=== PATIENT | female | born 1975 | race Caucasian/White ===

== ENCOUNTER 2023-05-17 14:37 | Outpatient (CLI) | payer OTHER, MEDICAID, SELFPAY ==
--- NOTE | ~2023-05-17 | MR_ITS ---
EXAMINATION: MR knee RT wo con DATE: 05/17/2023 15:42 INDICATION: Medial right knee pain post twisting injury TECHNIQUE: Magnetic resonance imaging (MRI) of the right knee was performed without intravenous contr ast. Sequences included coronal PD-weighted FSE, coronal PD-weighted FS FSE, sagittal T2-weighted FS E, sagittal PD-weighted FS FSE and axial PD weighted fat saturated FSE. COMPARISON: None. FINDINGS: Medial compartment: Medial meniscus is normal. Articular cartilage is normal. Lateral compartment: Lateral meniscus is normal. Articular cartilage is normal. Patellofemoral compartment: There is mild partial-thickness chondral fissuring at the caudal aspect of the lateral patellar facet . Partial-thickness chondral ulceration at the inferolateral aspect of the medial trochlea. Ligaments and tendons: Anterior and posterior cruciate ligaments are normal. The fibular collateral ligament complex is norm al. Mild thickening and increased signal of the proximal medial collateral ligament with minimal surr ounding edema consistent with low to moderate grade sprain. The extensor mechanism is normal. The vis ualized medial and lateral hamstring tendons as well as the iliotibial band are normal. Fluid: Small right knee joint effusion. There is a medial plical band which extends a few millimeters beyond the medial rim of the cephalad aspect of the medial trochlea. No loose osteochondral bodies identifi ed. Osseous/other: Normal marrow signal. No fracture or pathologic marrow replacing process. There is mild edema in the infrapatellar fat pad between the inferolateral margin of the patella and lateral trochlea. IMPRESSION: 1. Low to moderate grade strain of the proximal medial collateral ligament. 2. Mild patellofemoral osteoarthritis with small regions of moderate grade chondromalacia. 3. Mild edema in the infrapatellar fat pad which can be seen with fat pad impingement syndrome. Reviewed, dictated and finalized at location A. IMPRESSION: 1. Low to moderate grade strain of the proximal medial collateral ligament. 2. Mild patellofemoral osteoarthritis with small regions of moderate grade kush dromalacia. 3. Mild edema in the infrapatellar fat pad which can be seen with fat pad impin gement syndrome.
== END 2023-05-17 14:38 | disposition home or self-care (01) ==
PROVIDERS: PCP Nurse Practitioner Family; Visit Provider Physician Assistant Surgical
DX: M17.11 Unilateral primary osteoarthritis, right knee (principal); S83.411A Sprain of medial collateral ligament of right knee, initial encounter; X58.XXXA Exposure to other specified factors, initial encounter
CPT/HCPCS: 73721

== ENCOUNTER 2025-04-28 13:47 | Outpatient (CLI) | payer OTHER, SELFPAY ==
--- NOTE | ~2025-04-28 | CT_ITS ---
Non-contrast CT scan of the Abdomen Clinical indication: Disorder adrenal gland Technique: 2.5 mm axial scans were obtained through the abdomen without intravenous or oral contrast . Dose reduction technique was used on this scan by utilizing automated exposure control and iterativ e reconstruction technique. The dose-length product (DLP) was 983.82 mGy-cm. Findings: Images through the lung bases reveal no abnormalities. There is no evidence of renal or ureteral calculi. The kidneys and the ureters are nondilated. The liver, spleen, pancreas, gallbladder, and adrenals appear normal. There is no aortic aneurysm. Visualized bowel loops are unremarkable. No ascites. 4.1 cm partially cystic mass present in the righ t lower quadrant. Impression: Unremarkable adrenal glands. 4.1 cm partially imaged cystic mass in the right lower quadrant, possibly of ovarian/adnexal region. Consider dedicated imaging evaluation (CT or ultrasound). Reviewed, dictated and finalized at [facility]. Impression: Unremarkable adrenal glands. 4.1 cm partially imaged cystic mass in the right lower quadrant, possibly of ov barron/adnexal region. Consider dedicated imaging evaluation (CT or ultrasound).
--- OUTSIDE RECORDS SUMMARY | 2025-04-28 14:00 | XMS_ITS | Encounter Summary ---
Author Organization [facility] Address [address] [place] [address] Care Team Providers Care Clinical Care Coordinator Name Role Phone Sherri Bowesr MD Primary Care Provider [phone] Encounter Details Date Type Department Care Team (Late st Contact Info) Description 09/17/2024 [place]kot Message Enc [facility] Family Medicine - [address], [address] [place] [phone] Sherri Bowers MD [address] [facility] [address] [place], [place] [phone] Appointment Social History Tobacco Use Types Packs/Day Years Used Date Smoking Tobacco: Never Passive Smoke Exposure: Never Smokeless Tobacco: Never Alcohol Use Standard Drinks/Week Comments Yes 0 (1 standard drink = 0.6 oz pur e alcohol) PHQ-2 Answer Date Recorded Patient Health Questionnaire-2 Score 0 11/25/2023 Comments No Sex and Gender Information Value Date Recorded Sex Assigned at Female 02/09/2025 4:07 PM CDT Legal Sex Female 7:35 PM CDT Gender Identity Female 02/09/2025 4:07 PM CDT Sexual Orientation Not on file documented as of this encounter Plan of Treatment Not on file documented as of this encounter Visit Diagnoses Not on filedocumented in this encounter Additional Health Concerns Assessment Noted Time PHQ-9 Depression Total Score: 0 11/25/19 24 4: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
--- OUTSIDE RECORDS SUMMARY | 2025-04-28 14:00 | XMS_ITS | Clinical Summary ---
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 Gender Identity Not on file Sexual Orientation Not on file Plan of Treatment Health Maintenance Due Date Last Done Comments Hepatitis C Virus (HCV) Screening 1975 TdaP Immunization 1975 Hepatitis B Immunization (1 of 3 - 19+ 3-dose series) 1996 Pap Smear 1998 Cervical Cancer Screening (CCS) 2007 HPV/Cotest 2007 Cologuard 2022 Colonoscopy 2022 Colorectal Cancer Screening 2022 Immunochemical Fecal Occult Blood 2022 SARS-COV-2 Immunization ( season) 2024 Influenza Immunization (#1) 05/31/202507/31, 08/20/2018, 08/03/2014 Respiratory Syncytial Virus (RSV) Immunization (Adult) (1 - 1-dose 75+ series) 2052 Human Papillomavirus (HPV) Immunization Aged Out No longer eligible b ased on patient's age to complete this topic Meningococcal Immunization (ACWY) Aged Out No longer eligible b ased on patient's age to complete this topic Pneumococcal Immunization Combined Aged Out No longer eligible b ased on patient's age to complete this topic Rotavirus Immunization Aged Out No lo nger eligible based on patient's age to complete this topic
--- OUTSIDE RECORDS SUMMARY | 2025-04-28 14:00 | XMS_ITS | Encounter Summary ---
Author Organization [facility] Address [address] [place] [address] Care Team Providers Care Retail Commission Sales Associate Name Role Phone Sherri Bowers MD Primary Care Provider [phone] Encounter Details Date Type Department Care Team (Late st Contact Info) Description 12/26/2023 KaChing!t Message Enc [facility] Medical [facility] Family Medicine - [address], [address] [place] [phone] Sherri Bowers MD [facility] [address] [place], [place] [phone] Cold sore Social History Tobacco Use Types Packs/Day Years [...] Total Score: 0 11/25/19 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
--- OUTSIDE RECORDS SUMMARY | 2025-04-28 14:00 | XMS_ITS | Encounter Summary ---
Author Organization [facility] Address [address] [place] [address] Care Team Providers Care Practice Coordinator Name Role Phone Sherri Bowers MD Primary Care Provider [phone] Encounter Details Date Type Department Care Team (Late st Contact Info) Description 10/01/2024 InstrumentLifet Message Enc [facility] Medical Group Family Medicine - [address], [address] [place] [phone] Sherri Bowers MD [address] [facility] [address] [place] [address] Sick Social History Tobacco Use Types Packs/Day Years [...] Total Score: 0 11/25/19 24 4:00 PM SIZE TESTER documented as of this encounter Care Teams Practice Coordinator Relationship Specialty Start Date End Date Sherri Bowers MD [address] [address] PCP - General FAMILY PRACTICE 11/25/23 documented as of this encounter
--- OUTSIDE RECORDS SUMMARY | 2025-04-28 14:00 | XMS_ITS | Patient Health Record ---
Author Organization [facility] Address [address] [place] [phone] Care Team Providers Care Paperhanger Name Role Phone Galina Koehler Unavailable [phone] Allergies Allergen (clinical drug ingredient) Drug/Non Drug Allergy documented on EMR Reaction Allergy Type Onset Date Status Penicillin Unknown Drug Allergy Active Reason For Referral No Information Medications Medication SIG (Take, Route, Frequency, Duration) Notes Start Date End Date Status Basaglar KwikPen *Pick strength-form from [employer] for eRX* Unknown Ozempic (2 MG/DOSE) 8 MG/3ML Solution Pen-injector 2 mg Subcutaneous once a week Active NovoLOG *Pick strength-form from [employer] for eRX* Unknown hydroCHLOROthiazide 25 MG Tablet 1 tablet in the morning Orally Once a day taking 25 mg daily Unknown Losartan Potassium 100 MG Tablet 1 tablet Orally Once a day taking 50 mg daily Unknown dexAMETHasone 1 MG Tablet 1 tablet Orall y at 10 pm night before 8 am cortisol; Duration: 1 days Active Insulin Lispro (1 Unit Dial) 100 UNIT/ML Solution Pen-injector ADMINISTER 6 TO 16 UNITS UNDER THE SKIN THREE TIMES DAILY WITH MEALS; Duration: 27 Active Atorvastatin Calcium 40 MG Tablet TAKE 1 TABLET BY MOUTH DAILY; Duration: 90 Active Dexcom G7 Sensor - Miscellaneous REPLACE EVERY 10 DAYS; Duration: 30 Active metFORMIN HCl ER 500 MG Tablet Extended Release 24 Hour 1 tablet with evening meal Orally Once a day Unknown Ibuprofen 800 MG Tablet 1 tablet with food or milk as needed Orally every 8 hrs Unknown Methocarbamol 500 MG Tablet 1.5 tablets Orally every 4 hrs Unknown Hydroxychloroquine Sulfate 200 MG Tablet as directed Orally Unknown Lantus SoloStar 100 UNIT/ML Solution Pen-injector take 20 units AM and 20 units PM Subcutaneous once a day; Duration: 90 days dispense 3 boxes of 5 pens for a 90 day supply 04/20/2025 Active Diclofenac *Reorder from [employer] for eRx and Interaction Alerts* Unknown Social History Social History Additional Details Category Social Info Options Details Migrated Social History Migrated Social History (Alcohol:):yes 4 times weekly (Recreational drug use:):no (Smoking:):no Problems Problem Type SNOMED Code ICD Code Onset Dates Problem Status W/U Status Risk Notes Problem Hyperglycemia due to type 2 diabetes mellitus (545887810910397) Type 2 diabetes mellitus with hyperglycemia (E11.65) Active confirmed Problem Disorder of adrenal gland (49818623) Disorder of adrenal gland, unspecified (E27.9) Active confirmed Problem Vitamin D deficiency (85647328) Vitamin D deficiency, unspecified (E55.9) Active confirmed Problem Obesity, unspecified (E66.9) Active confirmed Problem Long-term current use of insulin (769224971) belt fixer (current) use of insulin (Z79.4) Active confirmed Problem Dyslipidemia (745438141) Dyslipidemia (E78.5) Active confirmed Vital Signs Heart Rate 85 /min 03/05/2025 Oximetry 95 % 03/05/2025 Blood pressure diastolic 83 mm Hg 03/05/2025 Weight-kg 94.8 kg 03/05/2025 Height 65 in 03/05/2025 Blood pressure systolic 133 mm Hg 03/05/2025 Weight 209.0 lbs 03/05/2025 BMI 34.78 kg/m2 03/05/2025 Encounters Encounter Location Date Provider Diagnosis [facility] Koheler [address] [place] [address] 10/30/[address] Koehler [id number] [place] [phone] 09/29/2024 Galina Koehler Type 2 diabetes katarina itus with hyperglycemia E11.65 ; Obesity, unspecified E66.9 ; Hyperlipidemia, unspecified E78.5 ; Other fatigue R53.83 ; Vitamin D deficiency, unspecified E55.9 and Dietary counseling and surveillance Z71.[address] Koehler [address] [place] [address] 03/05/2025 Galina Koehler Type 2 diabetes katarina itus with hyperglycemia E11.65 ; Obesity, unspecified E66.9 ; Dyslipidemia E78.5 ; Hyperlipidemia, unspecified E78.5 ; belt fixer (current) use of insulin Z79.4 and Dietary counseling and surveillance Z71.[address] Koehler [address] [place], [place] [phone] 10/13/2024 Galina Koehler [facility] [address] [place] [phone] 12/07/2024 Galina Koehler Obesity, unspecified E66.[address] Koehler [address] [place], [place] [phone] 03/17/2025 Galina Koehler [facility] [address] [place] [address] 03/25/2025 Galina Koehler Disorder of adrenal gland, unspecified E27.9 [facility] [address] [place] [address] 03/31/[address] Koehler [address] [place], [place] [phone] 04/12/2025 Galina Koehler [address] [place], [place] [phone] 04/14/2025 Galina Koehler [address] [place] [phone] 04/14/2025 Galina LEGGETT [place] [phone] 04/16/2025 Galina Koehler [place] [phone] 04/26/2025 Galina Koehler Assessments Encounter Date Diagnosis (ICD Code) Assessment Notes Treatment Notes Treatment Clinical Notes Section Notes 09/29/2024 Type 2 diabetes mellitus with hyperglycemia (ICD-10 - E11.65) 09/29/2024 Obesity, unspecified (ICD-10 - E66.9) 12/07/2024 Obesity, unspecified (ICD-10 - E66.9) 03/05/2025 Type 2 diabetes mellitus with hyperglycemia (ICD-10 - E11.65) 03/05/2025 Obesity, unspecified (ICD-10 - E66.9) 03/25/2025 Disorder of adrenal gland, unspecified (ICD-10 - E27.9) 09/29/2024 Hyperlipidemia, unspecified (ICD9-CM - E78.5) 03/05/2025 Dyslipidemia (ICD-10 - E78.5) 03/05/2025 Hyperlipidemia, unspecified (ICD9-CM - E78.5) 09/29/2024 Other fatigue (ICD-10 - R53.83) 09/29/2024 Vitamin D deficiency, unspecified (ICD-10 - E55.9) 03/05/2025 belt fixer (current) use of insulin (ICD-10 - Z79.4) 09/29/2024 Dietary counseling and surveillance (ICD-10 - Z71.3) 03/05/2025 Dietary counseling and surveillance (ICD-10 - Z71.3) Spent 15 minutes preventative counseling patient on dietary recommendations and changes in setting of hyperglycemia- need to restrict refined sugars and processed foods and incorporate up to 150 minutes of moderate level activity weekly. 09/29/2024 Other Assessment and Plan: 1. Type 2 Diabetes Mellitus- A1C: 8.8, down from 13- Current medications: Basaglar 25 to 20 units once a day, Humalog 12 units before meals, Impact 2 mg weekly, and glimepiride- Plan: Increase Basaglar to 25 units twice a day. Continue Humalog 12 units before meals. Monitor blood glucose levels with Dexcom sensor. Check cortisol levels to assess for possible adrenal or pituitary involvement. Reevaluate insulin regimen based on cortisol results. 2. Insomnia and Anxiety- Plan: Evaluate cortisol levels to determine if they are contributing to sleep disturbances and anxiety. Provide appropriate treatment based on results. 3. Hyperlipidemia- Current medication: Vascepa- Plan: Start atorvastatin every other day for heart protection. Monitor for myalgias and adjust medication as needed. 4. Rheumatoid Arthritis- Plan: Patient to start Humira after receiving instruction from diabetes nurse. Monitor for any side effects or complications. 5. Polycystic Ovary Syndrome- Current medication: Provera (progesterone)- Plan: Continue Provera as prescribed. Monitor for any changes in symptoms. 6. Hypertension- Plan: Continue current management. Monitor blood pressure regularly. 7. Thyroid function- Plan: Check thyroid function with blood work. 8. Vitamin D deficiency- Plan: Check vitamin D levels with blood work. 9. Foot injury and balance issues- History: Broken foot 10 years ago, currently in a boot since January- Plan: Continue with current management, including supportive footwear. Encourage patient to follow up with specialists as needed for balance issues and potential nerve damage. 10. Cortisol testing- Plan: Prescribe dexamethasone tablet for patient to take at 10 PM, followed by cortisol level testing the next morning. Evaluate results to determine if adrenal or pituitary involvement is present. 11. Follow-up- Plan: Schedule a follow-up appointment to review lab results, assess medication adjustments, and discuss any new concerns or changes in the patient's condition. Spent 15 minutes preventative counseling patient on dietary recommendations and changes in setting of hyperglycemia- need to restrict refined sugars and processed foods and incorporate up to 150 minutes of moderate level activity weekly. Spent 45 minutes preparing to see the patient (ex review of tests/chart), obtaining and / or reviewing separately obtained history, performing a medically appropriate examination and/or evaluation, counseling and educating the patient/family/caregiv er, ordering medications, tests, or procedures, referring and communicating with other health care asst, documenting clinical information in the electronic or other health record, independently interpreting results and communicating results to the patient/family/caregiv er and care coordinating patient plan. Patient alert and oriented x 4 and aware of discussion noted above and in agreeance to plan in management of uncontrolled type 2 dM, dyslipidemia, obesity, fatigue and concern for hypercortisolism. 03/05/2025 Other Assessment and Plan: 1. Type 2 Diabetes Mellitus with Poor Glycemic Control- Continue Ozempic 2 mg weekly- Continue Metformin 1000 mg BID- Adjust Semglee (insulin glargine) dosage based on continuous glucose monitor readings - Reduce by 3-5 units every few days if cortisol is driving hyperglycemia- Continue Humalog (insulin lispro) 12-15 units before meals- Order Comprehensive Metabolic Panel (CMP) to assess kidney function and potassium levels- Anticipate potential reduction or discontinuation of insulin therapy within the next year, pending improvement in glycemic control- Follow up in 2 weeks after initiating Korlym (mifepristone) treatment 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 - Start at 300 mg daily with a goal of 600 mg daily - Informed consent obtained; patient advised of potential side effects including nausea, headache, dizziness, fatigue, pain, and vaginal spotting- Perform dexamethasone suppression test - Instructions provided: take dexamethasone pill, collect 24-hour urine (refrigerate when not in use), obtain salivary cortisol sample between 11 PM and midnight- Monitor for signs of electrolyte imbalance (e.g., leg swelling) and hypertension (e.g., headaches)- Continue spironolactone 25 mg daily and losartan 50 mg daily for blood pressure management and potassium regulation- Follow up in 2 weeks with CMP to reassess kidney function and potassium levels 3. Recent Emergency Room Visit for Severe Abdominal Pain- Continue progesterone as prescribed by Dr. Stout for ovarian cyst management- Monitor for any recurrence of abdominal pain or symptoms related to pancreatitis 4. Medication Management- Continue atorvastatin (dose not specified)- Continue losartan 50 mg daily- Continue hydrochlorothiazide 25 mg daily- Continue spironolactone 25 mg daily- Discontinue Jardiance (empagliflozin) 5. Anxiety and Sleep Disturbances- Address underlying cortisol issues, which may improve sleep and anxiety symptoms- Reassess sleep and anxiety symptoms at follow-up visits Spent 25 minutes preparing to see the patient (ex review of tests/chart), obtaining and / or reviewing separately obtained history, performing a medically appropriate examination and/or evaluation, counseling and educating the patient/family/caregiv er, ordering medications, tests, or procedures, referring and communicating with other health care asst, documenting clinical information in the electronic or other health record, independently interpreting results and communicating results to the patient/family/caregiv er and care coordinating patient plan. Patient alert and oriented x 4 and aware of discussion noted above and in agreeance to plan in management of uncontrolled type 2 DM/obesity, likely secondary from hypercortisolism, dyslipidemia, insulin therapy use of CGM. Plan Of Treatment Pending Test Test Name Order Date *CT ABDOMEN W/O CONTRAST [id number] 5 Next Appt Details Provider Name:Galinaaudra Koehler, 09:00:00 AM, [address] [place] [address], [phone], Insurance Providers Payer Name Payer Address Payer Phone Subscriber Number Group Number Insured Name Patient Relationship to Insured Coverage Start Date Coverage End Date Dispatch O [address] [id number] Carmen Ponce Self - patient is the insured Medical (General) History Medical History History ICD Code BLOOD PREASURE DIABETIC RHMETOID ARTHRITIS Surgical History Surgery Date(Month/Year) BROKEN LEFT FOOT FATTY TUMOR REMOVED Hospitalization History Reason Date(Month/Year) 2018
--- OUTSIDE RECORDS SUMMARY | 2025-04-28 14:00 | XMS_ITS | Clinical Summary ---
Author Organization [facility] Address [address] [place] [id number] Care Team Providers Care Substance Abuse Nurse Name Role Phone Sherri Bowers MD Primary Care Provider [phone] Allergies Active Allergy Reactions Criticality Noted Date Comments Penicillins Rash,Hives Medium 04/20/2011 Reaction: Rash, Rash Medications albuterol sulfate HFA 108 (90 Base) MCG/ACT inhaler Inhale 2 puffs into the lungs every 4 (four) hours as needed. Active hydroCHLOROthi azide (HYDRODIURIL) 25 MG tablet Take 1 tablet (25 mg total) by mouth daily. Active VASCEPA 1 g capsule Take 2 capsules (2 g total) by mouth 2 (two) times daily. 3 Active Continuous Blood Gluc Sensor (DEXCOM G7 SENSOR) Misc REPLACE EVERY 10 DAYS 4 Active hydroxychloroq uine (PLAQUENIL) 200 MG tablet Take 2 tablets (400 mg total) by mouth daily. 4 Active insulin lispro, 1 Unit Dial, (HUMALOG) 100 UNIT/ML injection (PEN) ADMINISTER 6 TO 16 UNITS UNDER THE SKIN THREE TIMES DAILY WITH MEALS Active Insulin Pen Needle (BD PEN NEEDLE TONY 2ND GEN) 32G X 4 MM Misc USE WITH INJECTIONS FOUR TIMES DAILY Active Continuous Glucose Sensor (DEXCOM G7 SENSOR) Misc REPLACE EVERY 10 DAYS Active atorvastatin (LIPITOR) 40 MG tablet Take 1 tablet (40 mg total) by mouth daily. 4 Active ibuprofen (MOTRIN) 800 MG tablet Take 1 tablet (800 mg total) by mouth every 8 (eight) hours as needed. 4 Active lidocaine (LIDODERM) 5 % Place 1 patch onto the skin daily. 4 Active progesterone (PROMETRIUM) 200 MG capsule Take 1 capsule (200 mg total) by mouth nightly at bedtime. 5 Active spironolactone (ALDACTONE) 50 MG tablet Take 2 tablets (100 mg total) by mouth daily. 5 Active losartan (COZAAR) 50 MG tablet Take 1 tablet (50 mg total) by mouth daily. 5 Active pregabalin (LYRICA) 150 MG capsule Take 1 tablet by mouth 2 (two) times daily. Active tirzepatide (MOUNJARO) 5 MG/0.5ML injectionIndic ations:Diabete s Mellitus INJECT 5 MG INTO THE SKIN ONCE A WEEK. INDICATIONS: DIABETES 0.5 mL 2 5 Active metFORMIN ER (GLUCOPHAGE-XR ) 500 MG 24 hr tabletIndicati ons:Type 2 diabetes mellitus with diabetic polyneuropathy , with long-term current use of insulin ([facility]) TAKE 2 TABLETS BY MOUTH TWICE DAILY 360 tablet 4 5 Active insulin glargine (LANTUS) 100 UNIT/ML injection (PEN)Indicatio ns:Type 2 diabetes mellitus with diabetic microalbuminur ia, with long-term current use of insulin ([facility]) Inject 20 Units into the skin 2 (two) times daily. 15 mL 2 5 Active Insulin Glargine-yfgn (SEMGLEE, YFGN,) 100 UNIT/ML Solution Pen-injectorIn dications:Diab etic peripheral neuropathy ([facility] HHS/[facility]),Type 2 diabetes mellitus with diabetic nephropathy, with long-term current use of insulin ([facility]) Inject 20 Units into the skin 2 (two) times a day. 15 mL 4 5 04/19/20 25 Discontinu ed(Insuran ce denial) Active Problems Problem Noted Date Diagnosed Date Cardiomegaly 10/16/2023 Asthma (HHS/HCC) 10/09/2023 Neuropathy 07/26/2023 Dyslipidemia 04/30/2023 Mild intermittent asthma ([facility]) 04/18/2023 Elevated rheumatoid factor 03/05/2023 Allergic rhinitis 12/05/2022 Anxiety 12/05/2022 Bilateral carpal tunnel syndrome 12/05/2022 Diabetic peripheral neuropathy ([facility]) 12/05/2022 Diabetic retinopathy ([facility]) Gastroesophageal reflux disease 12/05/2022 Morbid obesity 12/05/2022 Obstructive sleep apnea syndrome 12/05/2022 Hypothyroidism 04/12/2022 Nonalcoholic fatty liver disease 04/23/2020 Overview (11/25/2023): 04/22/20 Fibroscan CAP 400, LSM 9.2 kPa 12/03/22 Fibroscan CAP 353, LSM 5.8 kPa Intestinal obstruction ([facility]) 020 Irregular periods 03/24/2020 Spinal enthesopathy 03/24/2020 Mixed hyperlipidemia 07/31/2013 Essential hypertension 07/31/2013 Type 2 diabetes mellitus ([facility]) 07/31 Overview (01/06/2024): Metformin 200mg BID Hg A1c 9.6 - Pt was diagnosed with T2IDDM in 2009 and was managed by PCP with basaglar (lantus) 46U qPM - Pt was diagnosed with T2IDDM in 2009 and was managed by PCP with basaglar (lantus) 46U qPM Last Assessment & Plan: Chronic , uncontrolled, worsening A1c 10.4 % TRY DEXCOM G 7 - Start taking Lantus 20 units SQ daily at bedtime - continue metformin , Glimepiride and Ozempic - while taking prednisone - use Humalog Humalog three times with meals 6 units with meals + below correctional scale 151 - 200 + 2 units 201 - 250 + 4 units 251 - 300 + 6 units 301 - 350 + 8 units Over 351 + 10 units, Work on diet as we discussed and start exercise 30-40 min daily - eat more home cooked meals - follow up in 2 months Vitamin D deficiency 07/31/2013 Overview (11/26/2023): Description: Original level 13.6 Resolved Problems Problem Noted Date Diagnosed Date Resolved Date Derangement of right knee 05/14/2023 Cobalamin deficiency 12/05/2022 024 Chronic hypertension in (HHS/HCC) 05/26/2014 11/25/2023 Overview (11/25/2023): Aldomet 500mg BID ASA 81mg daily No 24 hour urine sent Encounters Date Type Department Care Team Description 04/19/2025 Telephone [facility] [address] [place] [address] Nicolasa Weaver, ELECTRICAL SIGN SERVICER No Show 04/14/2025 11:00 AM CDT Office Visit [facility] [address] [place] [address] Payam Lenz MD Welsch, Torrey M, PT Initial Evaluation 04/14/2025 Telephone [facility] [address], [address] [place] [phone] Sherri Bowers MD Medication 04/14/2025 Travel 04/07/2025 12:45 PM CDT Office Visit [facility] [address] [place] [address] Sherri Bowers MD Welsch, Torrey M, PT Foot Pain 04/07/2025 Travel 03/31/2025 Scan [facility] Scanned, [facility] 03/25/2025 9:20 AM CDT Office Visit [facility] [address], [address] [place] [phone] Sherri Bowers MD Acute Note (Pt c/o nausea, and being tired states she went to [place] [facility] weeks ago) 03/25/2025 MyChart Message Enc [facility] [address], [address] [place] [address] [phone] Sherri Bowers MD My symptoms.. 03/25/2025 Travel 03/23/2025 10:15 AM CDT Office Visit [facility] [address] [place] [address] Sherri Bowers MD Welsch, Torrey M, PT Re-evaluation 03/23/2025 Travel 03/22/2025 Telephone [facility] [address], [address] [place] [phone] Sherri Bowers MD Appointment Request; Problem 03/20/2025 Scan [facility] Scanned, [facility] Lab (SCAN) 03/19/2025 Scan [facility] Scanned, [facility] Lab (SCAN) 03/18/2025 Telephone [place] [id number] [facility], [address] [place] [phone] Sherri Bowers MD Prior Authorization 03/16/2025 Scan [facility] Scanned, [facility] Lab (SCAN) 03/16/2025 Telephone [facility] [address], [address] [place] [phone] Sherri Bowers MD Error 03/15/2025 Scan [facility] Scanned, [facility] Lab (SCAN) 03/08/2025 Discharge [facility] [address] [place] [address] Rich Mccormack, PT 03/05/2025 Scan [facility] Scanned, [facility] 03/03/2025 Telephone [facility] [address] [facility], [address] [place] [phone] Sherri Bowers MD Prior Authorization 02/25/2025 Results Follow-Up [facility] [address], [address] [place] [phone] Sherri Boewrs MD XR SHOULDER LT 3V 02/24/2025 10:37 AM CDT - 02/24/2025 11:59 PM CDT Hospital Encounter [facility] [address] [place] [address] Sherri Bowers MD Discharge Disposition: Home or Self Care (Routine Discharge) 02/24/2025 Telephone [facility] [address] [place] [address] Rich Mccormack, PT No Show 02/24/2025 Travel 02/11/2025 Telephone [facility] [address] [facility], [address] [place] [phone] Sherri Bowers MD Prior Authorization 02/10/2025 10:15 AM CDT Office Visit [facility] [address] [place] [address] Sherri Bowers MD Welsch, Torrey M, PT Achilles Tendonitis 02/09/2025 3:40 PM CDT Office Visit [facility] [address] [facility], [address] [place] [phone] Sherri Bowers MD Follow Up (Patient would like to discuss weight loss and needs a cardio referral) 02/09/2025 Travel from Last 3 Months Immunizations Immunization Administration Dates Next Due Influenza (Generic) 06/30/2013 Influenza Adult (Generic) 08/29/2023,,08/20/2018,07/15/2018,2013 Family History Medical History Relation Comments Breast Cancer Other paternal cousin- female Relation Status Comments Other Social History Tobacco Use Types Packs/Day Years Used Date Smoking Tobacco: Never Passive Smoke Exposure: Never Smokeless Tobacco: Never Tobacco Cessation:Counseling Given: No Alcohol Use Standard Drinks/Week Comments Yes 0 (1 standard drink = 0.6 oz pur e alcohol) PHQ-2 Answer Date Recorded Patient Health Questionnaire-2 Score 0 10/26/2024 Comments No Sex and Gender Information Value Date Recorded Sex Assigned at Female 02/09/2025 4:07 PM CDT Legal Sex Female 7:35 PM CDT Gender Identity Female 02/09/2025 4:07 PM CDT Sexual Orientation Not on file Last Filed Vital Signs Vital Sign Reading Time Taken Comments Blood Pressure 110/80 03/25/2025 9:24 AM CDT Pulse 80 03/25/2025 9:24 AM CDT Temperature 35.8 C (96.5 F) 03/25/2025 9:24 AM CDT Respiratory Rate 14 01/05/2025 4:31 PM CDT Oxygen Saturation 98% 03/25/2025 9:24 AM CDT Inhaled Oxygen Concentration - - Weight 94.8 kg (208 lb 14.4 oz) 03/25/2025 9:24 AM CDT Height 165.1 cm (5' 5) 01/05/2025 4:31 PM CDT Body Mass Index 34.76 01/05/2025 4:31 PM CDT Plan of Treatment Health Maintenance Due Date Last Done Comments Cervical Cancer Screening Pap Smear (Age 30 to 64) Every 3 Years 1977 Colorectal Cancer Screening Colonoscopy (10 Years) 1977 Kidney Health Evaluation 1977 Lipid Panel 1977 Annual Physical 1980 Diabetes: Retinopathy Eye Exam 1995 DTaP, Tdap and Td Vaccines (1 - Tdap) 1996 Hepatitis B Vaccines (1 of 3 - 19+ 3-dose series) 1996 Pneumococcal Vaccine: Pediatrics (0 to 5 Years) and At-Risk Patients (6 to 49 Years) (1 of 2 - PCV) 1996 Cervical Cancer Screening Pap with HPV Testing (Age 30 to 64) Every 5 Years 2007 Cervical Cancer Screening with HPV 2007 COVID-19 Vaccine ( season) 2024 Hemoglobin A1C 04/06/2025 01/05/2025, 08/31, 11/21/2023, Additional history exists Mammogram Screening 05/26/2026 05/26/2024 Hepatitis C Completed 11/21/2023, 11/01, 11/21/2023, Additional history exists PHQ-2 (Physician Effort) Completed 10/26/2024 Meningococcal B Vaccine Aged Out No l onger eligible based on patient's age to complete this topic Meningococcal Vaccine Aged Out No yeison sheila eligible based on patient's age to complete this topic RSV Immunizations Under 20 Months Aged Out No longer eligible based on patient's age to complete this topic Procedures Procedure Name Priority Date/Time Associated Diagnosis Comments OUTSIDE LAB (SCAN ORDER) 03/20/2025 OUTSIDE LAB (SCAN ORDER) 03/19/2025 OUTSIDE LAB (SCAN ORDER) 03/16/2025 OUTSIDE LAB (SCAN ORDER) 03/16/2025 OUTSIDE LAB (SCAN ORDER) 03/15/2025 OUTSIDE LAB (SCAN ORDER) 03/15/2025 OUTSIDE LAB (SCAN ORDER) 03/15/2025 XR SHOULDER LT 3V Routine 02/24/2025 10: 52 AM CDT Chronic left shoulder pain HEMOGLOBIN, GLYCOSYLATED Routine 01/05/2025 4:39 PM CDT Type 2 diabetes mellitus with diabetic microalbuminuria, with long-term current use of insulin ([facility]/HCC HHS/[facility]) MG DIAG W MAHESH BILAT DIGI Routine 05/26/2024 7:15 AM CDT Breast pain from Last 3 Months or Most Recently Relevant to Health Maintenance Results * OUTSIDE LAB (SCAN ORDER) (03/20/2025) Only the most recent of7 resultswithin the time period is included. 03/20/2025 [facility] Scanned SCANNING Final Resu lt * XR SHOULDER LT 3V (02/24/2025 10:52 AM CDT) Anatomical Region Laterality Modality Shoulder Radiographic Cordelia ging 02/24/2025 1:03 PM CDT Impressions 02/24/2025 1:04 PM CDT IMPRESSION: 1. Osteoarthritis and subacromial narrowing. Referred By: Interpreted By: Camron Welch MD, 02/24/2025 1:03 PM Narrative 02/24/2025 1:04 PM CDT [place] [id number] EXAMINATION: Left shoulder EXAM DATE: 02/24/2025 10:42 AM REASON FOR EXAM: Pain with lifting COMPARISON: None TECHNIQUE: 3 views FINDINGS: Humeral head rests within the glenoid. Subacromial narrowing. Acromioclavicular osteoarthritis. No evidence of fracture. Procedure Note Camron Welch MD - 02/24/[address] [id number] EXAMINATION: Left shoulder EXAM DATE: 02/24/2025 10:42 AM REASON FOR EXAM: Pain with lifting COMPARISON: None TECHNIQUE: 3 views FINDINGS: Humeral head rests within the glenoid. Subacromial narrowing.Acromioclavicular osteoarthritis. No evidence of fracture. IMPRESSION: 1. Osteoarthritis and subacromial narrowing. Referred By: Interpreted By: Camron Welch MD, 02/24/2025 1:03 PM Sherri Bowers MD GENERAL IMAGING Final Result * (ABNORMAL) A1C (BACK OFFICE) (01/05/2025 4:39 PM CDT) HGB A1C 9.6 % MG-N MAIRA NICOLE 01/05/2025 4:39 PM CDT Sherri Bowers MD LABORATORY Final Result MG-N MAIRA NICOLE [address] [place] [id number], * MG DIAG W MAHESH BILAT DIGI (05/26/2024 7:15 AM CDT) Anatomical Region Laterality Modality Breast Bilateral Mammography 05/26/2024 7:42 AM CDT Impressions 05/26/2024 7:45 AM CDT =====IMPRESSION:===== No mammographic findings suggestive of malignancy ASSESSMENT: ACR BI-RADS 2 - BENIGN FINDING(S) Recommendation: 1: Routine Screening Bilateral Ordered By: SHERRI BOWERS Interpreted By: Gordon Cotto MD, 05/26/2024 7:42 AM Narrative 05/26/2024 7:45 AM CDT EXAMINATION: Digital bilateral diagnostic mammogram with 3-D tomography EXAM DATE/TIME: 05/26/2024 7:01 AM REASON FOR EXAM: Bilateral diffuse breast pain. COMPARISON: 04/17/2021, 03/25/2018 TECHNIQUE: Digital diagnostic mammography of both breasts was performed in addition to 3-D Tomosynthesis technique. This study was read with the assistance of a computer-aided detection system. TISSUE DENSITY: There are scattered areas of fibroglandular density. FINDINGS: No suspicious masses, malignant appearing calcifications, skin thickening or other abnormalities are present. Few scattered benign-appearing calcifications are noted. No significant change from the prior exam. Sherri Bowers MD MAMMO Final Result from Last 3 Months or Most Recently Relevant to Health Maintenance Insurance NICOLE Care Teams Substance Abuse Nurse Relationship Specialty Start Date End Date Sherri Bowers MD [address] [place] [phone] PCP - General FAMILY PRACTICE 11/25/23
--- OUTSIDE RECORDS SUMMARY | 2025-04-28 14:00 | XMS_ITS | Patient Health Record ---
Author Organization [facility] Address [address] [address] Care Team Providers Care Nuisance Animal Damage Control Agent Name Role Phone Galina Koehler [phone] Allergies Allergen (clinical drug ingredient) Drug/Non Drug Allergy documented on EMR Reaction Allergy Type Onset Date Status Penicillin Unknown Drug Allergy Active Reason For Referral No Information Medications Medication SIG (Take, Route, Frequency, Duration) Notes Start Date End Date Status Ibuprofen 800 MG 1 tablet with food o r milk as needed Orally every 8 hrs Active Diclofenac Active hydroCHLOROthiazide 25 MG 1 tablet in th e morning Orally Once a day Active Methocarbamol 500 MG 1.5 tablets Orally every 4 hrs Active Hydroxychloroquine Sulfate 2 00 MG as directed Orally Active Spironolactone 50 MG 2 tablets Orally On ce a day for 90 days 10/30/2024 Active Ozempic (2 MG/DOSE) 8 MG/3ML as directed Subcutaneous Active Atorvastatin Calcium 40 MG 1 tablet Oral ly Once a day for 90 days 09/29/2024 Active Losartan Potassium 50 MG 1 tablet Orally Once a day for 90 days 10/30/2024 Active metFORMIN HCl ER 500 MG 1 tablet with ev ening meal Orally Once a day Active Basaglar KwikPen Act олег Losartan Potassium 100 MG 1 tablet Orall y Once a day Active Glimepiride Active NovoLOG Active Problems Problem Type SNOMED Code ICD Code Onset Dates Problem Status W/U Status Risk Notes Problem Vitamin D deficiency (51261027) Vitamin D deficiency, unspecified (E55.9) Active confirmed Problem Hyperglycemia due to type 2 diabetes mellitus (274131583161662) Type 2 diabetes mellitus with hyperglycemia (E11.65) Active confirmed Problem Hyperlipidemia (76643538) Hyperlipidemia, unspecified (E78.5) Active confirmed Problem Essential hypertension (33475758) Essential (primary) hypertension (I10) Active confirmed Problem Obesity (696601498) Obesity, unspecified (E66.9) Active confirmed Vital Signs Heart Rate 85 /min 10/30/2024 Blood pressure diastolic 83 mm Hg 10/30/2024 Height 65 in 10/30/2024 Blood pressure systolic 146 mm Hg 10/30/2024 Weight 210.0 lbs 10/30/2024 BMI 34.94 kg/m2 10/30/2024 Encounters Encounter Location Date Provider Diagnosis [facility] [employer] [address] [place] [address] 10/30/2024 Galina Koehler Type 2 diabetes katarina itus with hyperglycemia E11.65 ; Hyperlipidemia, unspecified E78.5 ; Vitamin D deficiency, unspecified E55.9 ; Obesity, unspecified E66.9 ; Dietary counseling and surveillance Z71.3 and Essential (primary) hypertension I10 [employer] [facility] [employer] [address] [place] [address] 12/11/2024 [facility] [employer] [address] [place] [address] 09/29/2024 Galina [employer] Type 2 diabetes katarina itus with hyperglycemia E11.65 ; Obesity, unspecified E66.9 ; Hyperlipidemia, unspecified E78.5 ; Other fatigue R53.83 ; Vitamin D deficiency, unspecified E55.9 and Dietary counseling and surveillance Z71.3 [facility] [employer] [address] [place] [address] 10/13/2024 Galina Koehler Assessments Encounter Date Diagnosis (ICD Code) Assessment Notes Treatment Notes Treatment Clinical Notes Section Notes 10/30/2024 Type 2 diabetes mellitus with hyperglycemia (ICD-10 - E11.65) 10/30/2024 Hyperlipidemia, unspecified (ICD-10 - E78.5) 09/29/2024 Type 2 diabetes mellitus with hyperglycemia (ICD-10 - E11.65) 09/29/2024 Obesity, unspecified (ICD-10 - E66.9) 10/30/2024 Vitamin D deficiency, unspecified (ICD-10 - E55.9) 09/29/2024 Hyperlipidemia, unspecified (ICD-10 - E78.5) 10/30/2024 Obesity, unspecified (ICD-10 - E66.9) 09/29/2024 Other fatigue (ICD-10 - R53.83) 10/30/2024 Dietary counseling and surveillance (ICD-10 - Z71.3) 09/29/2024 Vitamin D deficiency, unspecified (ICD-10 - E55.9) 10/30/2024 Essential (primary) hypertension (ICD-10 - I10) 09/29/2024 Dietary counseling and surveillance (ICD-10 - Z71.3) 09/29/2024 Other Assessment and Plan: 1. Type [...] to start Humira after receiving instruction from hospital security officer. Monitor for any side effects or complications. [...] procedures, referring and communicating with other health transition of care specialist, documenting clinical information in the electronic or other health record, independently interpreting results and communicating results to the patient/family/caregiv er and care coordinating patient plan. Patient alert and oriented x 4 and aware of discussion noted above and in agreeance to plan in management of uncontrolled type 2 dM, dyslipidemia, obesity, fatigue and concern for hypercortisolism. 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 Recent prednisone use noted.Differential diagnosis includes adrenal or pituitary tumor.Actions: Schedule dexamethasone suppression test, fasting lab, and 24-hour urine collection at [facility] in 4 weeks (post-prednisone washout). Initiate Korlym (mifepristone) 300 mg every other day for 2 weeks, then adjust to 300 mg daily for 4 weeks, pending insurance approval. Conduct lab tests 2 weeks after starting Korlym and again after 4 weeks. Adjust diabetes medications: discontinue glimepiride, reduce Basaglar by 8-10 units both morning and night, and reduce Humalog dose by half. Continue metformin and Ozempic. Monitor for side effects including dizziness, headache, nausea, vomiting, hypotension, and hypoglycemia. Require test before starting treatment.Follow-up: Schedule a follow-up appointment in 6 weeks. Type 2 Diabetes MellitusPatient's current regimen and recent A1C of 8.7% noted, with no weight loss despite medication adherence and dietary restrictions.Actions: Adjust diabetes medications as per Farwell's syndrome plan. Continue metformin 2000 mg daily and Ozempic 2 mg weekly. Monitor blood glucose levels using a glucose sensor. Goal: Achieve an A1C of 6% or less. Per CGM review she is in range 67% of time with no hypoglycemia and 23% hyperglycemia ranging from 90 mg/dL up to 290 mg/dL with average of 170 mg/dL HypertensionPatient reports elevated blood pressure, currently managed with losartan and hydrochlorothiazide. Recent prednisone use may be contributing to hypertension.Actions: Initiate spironolactone 50 mg twice daily (100 mg total). Reduce losartan dose by half to 50 mg daily. Discontinue hydrochlorothiazide. Monitor blood pressure and potassium levels. Rheumatoid ArthritisPatient reports weakness in arms and legs, currently under hospital security officer care and taking hydroxychloroquine.Act ions: Continue hydroxychloroquine as prescribed by hospital security officer. Monitor for changes in symptoms. Spent 15 minutes preventative counseling patient on dietary recommendations and changes in setting of hyperglycemia- need to restrict refined sugars and processed foods and incorporate up to 150 minutes of moderate level activity weekly. Spent 25 minutes preparing to see the patient (ex review of tests/chart), obtaining and / or reviewing separately obtained history, performing a medically appropriate examination and/or evaluation, counseling and educating the patient/family/caregiv er, ordering medications, tests, or procedures, referring and communicating with other health transition of care specialist, documenting clinical information in the electronic or other health record, independently interpreting results and communicating results to the patient/family/caregiv er and care coordinating patient plan. Patient alert and oriented x 4 and aware of discussion noted above and in agreeance to plan in management of uncontrolled type 2 DM (A1C of 8.7%) with severe insulin resistance concerning for hypercortisolism, obesity/weight management, hypertension, vit D def, dyslipidemia. Plan Of Treatment No Information Insurance Providers Payer Name Payer Address Payer Phone Subscriber Number Group Number Insured Name Patient Relationship to Insured Coverage Start Date Coverage End Date [facility] Complete [facility] [address] [place] [address] [id number] Carmen Ponce Self - patient is the insured Medical (General) History Medical History History ICD Code BLOOD PREASURE DIABETIC RHMETOID ARTHRITIS Surgical History Surgery Date(Month/Year) FATTY TUMOR REMOVED BROKEN LEFT FOOT Hospitalization History Reason Date(Month/Year) 2018
--- OUTSIDE RECORDS SUMMARY | 2025-04-28 14:01 | XMS_ITS ---
Author Organization [facility] Address [address] [place] [address] Care Team Providers Care Reimbursement Representative Name Role Phone Galina Koehler [phone] REASON FOR VISIT f/u felice Encounters Encounter Location Date Provider Diagnosis [facility] Dr. Koehler [address] [place] [phone] 12/25/2024 Galina Koehler Plan Of Treatment Next Appt Details Provider Name:Galina Koehler, 09:00:00 AM, [address] [place] [address], [phone], Progress Notes * Carmen GORDON GDOB:1974 (49 yo F)Acc No.[id number]:12/25/2024 Progress Notes Patient: Carmen Sharp Provider: Namita Koehler MD :1975 A ge:49 Y S ex:Female Date:12/25/2024 Address:[address] [place] [address] Subjective: * Chief Complaints: * F /u felice * Electronic signature of Justin Koehler MD on 04/28/2025 at 02:00 PM CDT Sign off status: Pending * Provider: Namita Koehler MD Date: 12/25/2024 Generated for Alicia ng/Fanayeli/eTransmitting on: 04/28/2025 02:00 PM CDT
--- OUTSIDE RECORDS SUMMARY | 2025-04-28 14:01 | XMS_ITS ---
Author Organization [facility] Address [address] [place] [address] Care Team Providers Care Vegetable Canner Name Role Phone Galina Koehler [phone] REASON FOR VISIT 6 week f/u felice Encounters Encounter Location Date Provider Diagnosis [facility] - Galina Koehler [address] [place] [address] 12/11/2024 Galina Koehler Plan Of Treatment No Information Progress Notes * Carmen GORDON GDOB:1974 (49 yo F)Acc No.[id number]:12/11/2024 Progress Notes Patient: Carmen SAAB Provider: Namita Koehler MD :1975 A ge:49 Y S ex:Female Date:12/11/2024 Address:[address] [place] [address] Subjective: * Chief Complaints: * 1 . 6 week f/u felice. * Medical History: Objective: * Vitals: Assessment: Plan: * Treatment: * Billing Information: * Visit Code: * Procedure Codes: * Electronic signature of uJstin Koehler MD on 04/28/2025 at 02:00 PM CDT Sign off status: Pending * Provider: Namita Koehler MD Date: 12/11/2024 Generated for Alicia gibbs/Ralph/eTransmitting on: 04/28/2025 02:00 PM CDT
--- OUTSIDE RECORDS SUMMARY | 2025-04-28 14:01 | XMS_ITS | Encounter Summary ---
Author Organization [facility] Address [address] [place] [address] Care Team Providers Care Page Technician Name Role Phone Sherri Bowers MD Primary Care Provider [phone] Encounter Details Date Type Department Care Team (Late st Contact Info) Description 02/25/2025 Results Follow-Up [facility] Family Medicine - [address], [address] [place] [phone] Sherri Bowers MD [facility] [address] [place], [place] [id number] XR SHOULDER LT 3V Social History Tobacco Use Types Packs/Day Years [...] Noted Time PHQ-9 Depression Total Score: 0 10/26/19 25 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
--- OUTSIDE RECORDS SUMMARY | 2025-04-28 14:01 | XMS_ITS | Encounter Summary ---
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
[2025-04-29 15:40] LABS: Estimated Glomerular Filt Rate 59
== END 2025-04-28 13:48 | disposition home or self-care (01) ==
PROVIDERS: Visit Provider Internal Medicine Endocrinology, Diabetes & Metabolism
DX: E27.9 Disorder of adrenal gland, unspecified (principal)
CPT/HCPCS: 36415; 74150; 82565

== ENCOUNTER 2025-06-08 08:24 | Outpatient (CLI) | payer OTHER, SELFPAY ==
--- OUTSIDE RECORDS SUMMARY | 2024-12-11 04:50 | XMS_ITS ---
Author Organization [employer] [facility] Address [address] [place] [address] Care Team Providers Care Head Setter Name Role Phone Galina Koehler [phone] REASON FOR VISIT 6 week f/u felice Encounters Encounter Location Date Provider Diagnosis [facility] - Galina Koehler [address] [place] [address] 12/11/2024 Galina Koehler Plan Of Treatment No Information Progress Notes * Carmen GORDON GDOB:1974 (50 yo F)Acc No.[id number]:12/11/2024 Progress Notes Patient: Carmen SAAB Provider: Namita Koehler MD :1975 A ge:49 Y S ex:Female Date:12/11/2024 Address:[address] [place] [address] Subjective: * Chief Complaints: * 1 . 6 week f/u felice. * Medical History: Objective: * Vitals: Assessment: Plan: * Treatment: * Billing Information: * Visit Code: * Procedure Codes: * Electronic signature of Justin Koehler MD on 06/08/2025 at 08:53 AM CDT Sign off status: Pending * Provider: Namita Koehler MD Date: 12/11/2024 Generated for Alicia gibbs/Ralph/eTransmitting on: 06/08/2025 08:53 AM CDT
--- OUTSIDE RECORDS SUMMARY | 2025-05-07 04:00 | XMS_ITS ---
Author Organization [facility] Address [address] [place] [id number] Care Team Providers Care Dean Of Women Name Role Phone Galina Koehler [phone] REASON FOR VISIT 2 month f/u Encounters Encounter Location Date Provider Diagnosis [facility]MO Dr. Koehler [address] [place] [phone] 2025 Galina Koehler Plan Of Treatment Next Appt Details Provider Name:Galina Koehler, 09:40:00 AM, [address] [place] [address], [phone], Progress Notes * Carmen GORDON GDOB:1974 (50 yo F)Acc No.[id number]:2025 Progress Notes Patient: Carmen Sharp Provider: Namita Koehler MD :1975 A ge:50 Y S ex:Female Date:2025 Phone: Address:[address] [place] [address] Subjective: * Chief Complaints: * 2 month f/u * Electronic signature of Justin Koehler MD on 06/08/2025 at 08:54 AM CDT Sign off status: Pending * Provider: Namita Koehler MD Date: 2025 Generated for Alicia gibbs/Ralph/Brendenitting on: 06/08/2025 08:54 AM CDT
--- OUTSIDE RECORDS SUMMARY | 2025-05-07 06:40 | XMS_ITS ---
Author Organization [facility] Address [address] [place] [address] [address] [id number] Care Team Providers Care Offset Label Rewinder Name Role Phone Galina Koehler Unavailable [phone] REASON FOR VISIT 2 month f/u Medications Medication SIG (Take, Route, Frequency, Duration) Notes Start Date End Date Status Lantus SoloStar 100 UNIT/ML Solution Pen-injector take 20 units AM and 20 units PM Subcutaneous once a day; Duration: 90 days dispense 3 boxes of 5 pens for a 90 day supply 04/20/2025 Active Atorvastatin Calcium 40 MG Tablet TAKE 1 TABLET BY MOUTH DAILY; Duration: 90 Active Insulin Lispro (1 Unit Dial) 100 UNIT/ML Solution Pen-injector ADMINISTER 6 TO 16 UNITS UNDER THE SKIN THREE TIMES DAILY WITH MEALS; Duration: 27 Active Ozempic (2 MG/DOSE) 8 MG/3ML Solution Pen-injector 2 mg Subcutaneous once a week Active Ondansetron 4 MG Tablet Disintegrating 1 tablet on the tongue and allow to dissolve Orally Once a day; Duration: 30 days 05/04/2025 Active metFORMIN HCl ER 500 MG Tablet Extended Release 24 Hour 1 tablet with evening meal Orally Once a day Unknown NovoLOG *Pick strength-form from [employer] for eRX* Unknown Basaglar KwikPen *Pick strength-form from [employer] for eRX* Unknown Losartan Potassium 100 MG Tablet 1 tablet Orally Once a day taking 50 mg daily Unknown hydroCHLOROthiazide 25 MG Tablet 1 tablet in the morning Orally Once a day taking 25 mg daily Unknown Hydroxychloroquine Sulfate 200 MG Tablet as directed Orally Unknown Dexcom G7 Sensor - Miscellaneous REPLACE EVERY 10 DAYS; Duration: 30 Active Methocarbamol 500 MG Tablet 1.5 tablets Orally every 4 hrs Unknown Ibuprofen 800 MG Tablet 1 tablet with food or milk as needed Orally every 8 hrs Unknown Diclofenac *Reorder from [facility] for eRx and Interaction Alerts* Unknown dexAMETHasone 1 MG Tablet 1 tablet Orall y at 10 pm night before 8 am cortisol; Duration: 1 days Active Encounters Encounter Location Date Provider Diagnosis [facility]MO Dr. Koehler [address] [place] [phone] 2025 Galina Rodo Plan Of Treatment Next Appt Details Provider Name:Galina Koehler, 09:40:00 AM, [address] [place] [address], [place], [phone], History and Physical Notes * HPI (History of Present Illness) Category Sub-Category Detail Notes Category Not es History of Present Illness 49 yo female comes in for follow up in management of poorly controlled type 2 DM (A1C of 8.7%), dyslipidemia, obesity/weight management, vit D def and concern for hypercortisolism. at last visit in February we split basaglar to 25 units BID and humalog 12 units before meals. We continued ozempic 1 mg weekly and metformin twice daily. We discussed starting korlym low dose and spironolactone 50 mg daily as DST of 1.3 ug/dL and she has all symptoms of hypercortisolism. Salivary cortisol completed in February was negative x 2 acth 5.9 pg/ML dheas low normal range repeat DST from February was positive at 1.8 ug/dL potassium of 4.3 mmol/L Cr normal CT abd from 04/28 revealed 4.1 cm ovarian cyst and normal adrenal anatomy Progress Notes * Carmen GORDON GDOB:1974 (50 yo F)Acc No.[id number]:2025 Progress Notes Patient: Carmen Sharp Provider: Namita Koehler MD :1975 A ge:50 Y S ex:Female Date:2025 Phone: Address:[address] [place] [address], [facility] Subjective: * Chief Complaints: * 2 month f/u * HPI: H istory of Present Illness: 49 yo female comes in for follow up in management of poorly controlled type 2 DM (A1C of 8.7%), dyslipidemia, obesity/weight management, vit D def and concern for hypercortisolism. at last visit in February we split basaglar to 25 units BID and humalog 12 units before meals. ?We continued ozempic 1 mg weekly and metformin twice daily. Alex bruce discussed starting korlym low dose and spironolactone 50 mg daily as DST of 1.3 ug/dL and she has all symptoms of hypercortisolism. Salivary cortisol completed in February was negative x 2 acth 5.9 pg/ML dheas low normal range repeat DST from February was positive at 1.8 ug/dL potassium of 4.3 mmol/L Cr normal CT abd from 04/28 revealed 4.1 cm ovarian cyst and normal adrenal anatomy. * Medications: T akingOzempic (2 MG/DOSE) 8 MG/3ML Solution Pen-injector 2 mg Subcutaneous once a week dexAMETHasone 1 MG Tablet 1 tablet Orally at 10 pm night before 8 am cortisol Dexcom G7 Sensor - Miscellaneous REPLACE EVERY 10 DAYS Insulin Lispro (1 Unit Dial) 100 UNIT/ML Solution Pen-injector ADMINISTER 6 TO 16 UNITS UNDER THE SKIN THREE TIMES DAILY WITH MEALS Atorvastatin Calcium 40 MG Tablet TAKE 1 TABLET BY MOUTH DAILY Lantus SoloStar 100 UNIT/ML Solution Pen-injector take 20 units AM and 20 units PM Subcutaneous once a day , Notes to Pharmacist: dispense 3 boxes of 5 pens for a 90 day supplyOndansetron 4 MG Tablet Disintegrating 1 tablet on the tongue and allow to dissolve Orally Once a day Taking Ozempic (2 MG/DOSE) 8 MG/3ML Solution Pen- injector 2 mg Subcutaneous once a week Taking dexAMETHasone 1 MG Tablet 1 tablet Orally at 10 pm night before 8 am cortisol Taking Dexcom G7 Sensor - Miscellaneous REPLACE EVERY 10 DAYS Taking Insulin Lispro (1 Unit Dial) 100 UNIT/ML Solution Pen-injector ADMINISTER 6 TO 16 UNITS UNDER THE SKIN THREE TIMES DAILY WITH MEALS Taking Atorvastatin Calcium 40 MG Tablet TAKE 1 TABLET BY MOUTH DAILY Taking Lantus SoloStar 100 UNIT/ML Solution Pen-injector take 20 units AM and 20 units PM Subcutaneous once a day , Notes to Pharmacist: dispense 3 boxes of 5 pens for a 90 day supplyTaking Ondansetron 4 MG Tablet Disintegrating 1 tablet on the tongue and allow to dissolve Orally Once a day UnknownHydroxychloroquine Sulfate 200 MG Tablet as directed Orally Diclofenac , Notes to Pharmacist: *Reorder from [employer] for eRx and Interaction Alerts*Ibuprofen 800 MG Tablet 1 tablet with food or milk as needed Orally every 8 hrs Methocarbamol 500 MG Tablet 1.5 tablets Orally every 4 hrs hydroCHLOROthiazide 25 MG Tablet 1 tablet in the morning Orally Once a day , Notes to Pharmacist: taking 25 mg dailyLosartan Potassium 100 MG Tablet 1 tablet Orally Once a day , Notes to Pharmacist: taking 50 mg dailyBasaglar KwikPen , Notes to Pharmacist: *[facility]*NovoLOG , Notes to Pharmacist: *[facility]*metFORMIN HCl ER 500 MG Tablet Extended Release 24 Hour 1 tablet with evening meal Orally Once a day Unknown Hydroxychloroquine Sulfate 200 MG Tablet as directed Orally Unknown Diclofenac , Notes to Pharmacist: *[facility] for [facility] and Interaction Alerts*Unknown Ibuprofen 800 MG Tablet 1 tablet with food or milk as needed Orally every 8 hrs Unknown Methocarbamol 500 MG Tablet 1.5 tablets Orally every 4 hrs Unknown hydroCHLOROthiazide 25 MG Tablet 1 tablet in the morning Orally Once a day , Notes to Pharmacist: taking 25 mg dailyUnknown Losartan Potassium 100 MG Tablet 1 tablet Orally Once a day , Notes to Pharmacist: taking 50 mg dailyUnknown Basaglar KwikPen , Notes to Pharmacist: *[facility] for [facility]*Unknown NovoLOG , Notes to Pharmacist: *[facility]*Unknown metFORMIN HCl ER 500 MG Tablet Extended Release 24 Hour 1 tablet with evening meal Orally Once a day * Electronic signature of Justin Koehler MD on 06/08/2025 at 08:54 AM CDT Sign off status: Pending * Provider: Namita Koehler MD Date: 0 2025 Generated for Alicia gibbs/Ralph/Chelo on: 0 06/08/2025 08:54 AM CDT
--- OUTSIDE RECORDS SUMMARY | 2025-06-01 05:40 | XMS_ITS ---
Author Organization [facility] Address [address] [place] [phone] Care Team Providers Care Fine Grade Bulldozer Operator Name Role Phone Galina Koehler Gil [phone] REASON FOR VISIT lab f/u Encounters Encounter Location Date Provider Diagnosis [facility]MO Dr. Koehler [address] [place] [phone] 06/01/2025 Galina Koehler Plan Of Treatment Next Appt Details Provider Name:Galina Koehler, 09:40:00 AM, [address] [place] [address], [phone], Progress Notes * Carmen GORDON GDOB:1974 (50 yo F)Acc No.[id number]:06/01/2025 Progress Notes Patient: Carmen Sharp Provider: Namita Koehler MD :1975 A ge:50 Y S ex:Female Date:06/01/2025 Phone: Address:[address] [place] [address] Subjective: * Chief Complaints: * L ab f/u * Electronic signature of Justin Koehler MD on 06/08/2025 at 08:54 AM CDT Sign off status: Pending * Provider: Namita Koehler MD Date: 06/01/2025 Generated for Alicia gibbs/Ralph/Brendenitting on: 06/08/2025 08:54 AM CDT
--- OUTSIDE RECORDS SUMMARY | 2025-06-08 08:53 | XMS_ITS | Clinical Summary ---
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
--- OUTSIDE RECORDS SUMMARY | 2025-06-08 08:54 | XMS_ITS | Encounter Summary ---
Author Organization [facility] Address [address] [place] [address] Care Team Providers Care Digital Traffic Coordinator Name Role Phone Lidia Rojas DOMINIQUE Primary Care Provider [phone] Sherri Bowers MD Primary Care Provider [phone] Encounter Details Date Type Department Care Team (Late st Contact Info) Description 07/08/2023 Telephone [facility] - Centralized Scheduling [address] [place] [phone] Pranav Lucio MD [address] [place], [place] [phone] Social History Tobacco Use Types Packs/Day Years Used Date Smoking Tobacco: Never Smokeless Tobacco: Never Alcohol Use Standard Drinks/Week Comments Yes 4 (1 standard drink = 0.6 oz pur e alcohol) Comments No Sex and Gender Information Value Date Recorded Sex Assigned at Not on file 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 Answer Date of Assessment Author No 05/26/2014 4:52 PM Alisa Sharma RN * Is person blind or have serious difficulty seeing? Answer Date of Assessment Author No 05/26/2014 4:52 PM Alisa Sharma RN * Does person have serious difficulty walking/climbing stairs? Answer Date of Assessment Author No 05/26/2014 4:52 PM Alisa Sharma RN * Does person have difficulty dressing/bathing? Answer Date of Assessment Author No 05/26/2014 4:52 PM Alisa Sharma RN * Does person have difficulty doing errands alone? Answer Date of Assessment Author No 05/26/2014 4:52 PM Alisa Sharma RN documented as of this encounter Mental Status * Does person have difficulty concentrating/remembering/making decisions? Answer Entry Date Author No 05/26/2014 4:52 PM Alisa Sharma RN documented in this encounter Plan of Treatment Not on file documented as of this encounter Goals Goal Patient Goal Type Associated Problems Recent Progress Patient-Stated? Author Medication Management General On track( 022 8:13 AM RIPPER OPERATOR) Olivier Higgins, RN Note: Expected end date: Interventions: Take all medications as prescribed Let your doctor know right away about any changes in your medications Make sure to request a refill of your medication at least one week prior to your last dose documented as of this encounter Visit Diagnoses Not on filedocumented in this encounter Care Teams Digital Traffic Coordinator Relationship Specialty Start Date End Date Lidia Rojas APRN-BETTIE [address] [phone] PCP - General Nurse Practitioner Family 04/28/1903/05 Sherri Bowers MD [address] [place] [address], [facility] [address] [facility] [place] [facility] [address] [place] [address] PCP - General Family Medicine 05/06/25 documented as of this encounter
--- OUTSIDE RECORDS SUMMARY | 2025-06-08 08:54 | XMS_ITS | Encounter Summary ---
Author Organization [facility] Address [address] [place] [address] Care Team Providers Care Clipper Automatic Name Role Phone Hamida Carey WAISTBAND SETTER Unavailable [phone] Sherri Bowers MD Primary Care Provider + Reason for Visit * Reason Onset Date Comments lido appointment 05/27/2025 Encounter Details Date Type Department Care Team ([facility] st Contact Info) Description 05/27/2025 Telephone [facility] [address] [facility] [address] [place], [place] [phone] Sada Ren MD PhD [address] [facility] [address] [facility] [phone] [place], [place] [phone] lido appointment Social History Tobacco Use Types Packs/Day Years Used Date Smoking Tobacco: Never Smokeless Tobacco: Never Alcohol Use Standard Drinks/Week Comments Yes 2 (1 standard drink = 0.6 oz pur e alcohol) socially PHQ-2 Answer Date Recorded PHQ-2 Total Score (If total score is 3 or more points, staff should administer the PHQ-9) 0 01/30/2024 AUDIT-C Answer Date Recorded Q1: How often do you have a drink containing alc ohol? 2-3 times a week 05/20/2025 Q2: How many drinks containi ng alcohol do you have on a typical day when you are drinking? 1 or 2 05/20/2025 Q3: How often do you have si x or more drinks on one occasion? Never 05/20/2025 Personal Safety Answer Date Recorded Have you ever been in or are you currently in a harmful physical or emotional relationship or is someone making you feel afraid or unsafe? 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 Pt scheduled for 07/12/2025 @ 0730. documented in this encounter Plan of Treatment Not on file documented as of this encounter Goals Goal Patient Goal Type Associated Problems Recent Progress Patient-Stated? Author CCM Chronic Pain Care Plan Chronic Care Management On track(2024 9:27 AM CDT) No Radha Maria RN Note: Problem: Chronic Pain Goals: 1. Minimize further functional decline 2. Maximize quality of life 3. Control pain Strategies: - Activity/exercise program recommendation - Conservative stepwise pain medicine strategy with multi-disciplinary approach - Recommend healthy lifestyle strategies and compensatory methods as needed documented as of this encounter Visit Diagnoses Not on filedocumented in this encounter Care Teams Clipper Automatic Relationship Specialty Start Date End Date Sherri Bowers MD [address] [place] [id number] PCP - General Family Medicine 01/30/24 Hamida Carey NP Nurse Practitioner Neurology 03/24/20 documented as of this encounter
--- OUTSIDE RECORDS SUMMARY | 2025-06-08 08:54 | XMS_ITS | Patient Health Record ---
Author Organization [facility] Address [address] [address] Care Team Providers Care Inspector Plug Seam Name Role Phone Galina Koehler [phone] Allergies Allergen (clinical drug ingredient) Drug/Non Drug [...] Status Risk Notes Problem Vitamin D deficiency (93557667) Vitamin D deficiency, unspecified (E55.9) Active confirmed Problem Hyperglycemia due to type 2 diabetes mellitus (923695675669145) Type 2 diabetes mellitus with hyperglycemia (E11.65) Active confirmed Problem Hyperlipidemia (26759941) Hyperlipidemia, unspecified (E78.5) Active confirmed Problem Essential hypertension (50953735) Essential (primary) hypertension (I10) Active confirmed Problem Obesity (454316708) Obesity, unspecified (E66.9) Active confirmed Vital Signs Heart Rate 85 /min 10/30/2024 Blood pressure diastolic 83 mm Hg 10/30/2024 Height 65 in 10/30/2024 Blood pressure systolic 146 mm Hg 10/30/2024 Weight 210.0 lbs 10/30/2024 BMI 34.94 kg/m2 10/30/2024 Encounters Encounter Location Date Provider Diagnosis [facility] [address] [place] [address] 10/30/2024 Galina Koehler Type 2 diabetes katarina itus with hyperglycemia E11.65 ; Hyperlipidemia, unspecified E78.5 ; Vitamin D deficiency, unspecified E55.9 ; Obesity, unspecified E66.9 ; Dietary counseling and surveillance Z71.3 and Essential (primary) hypertension I10 [employer] [address] [place] [address] 12/11/2024 Gal[facility]oehler [facility] [employer] [address] [place] [address] 09/29/2024 Galina Sociall Type 2 diabetes katarina itus with hyperglycemia E11.65 ; Obesity, unspecified E66.9 ; Hyperlipidemia, unspecified E78.5 ; Other fatigue R53.83 ; Vitamin D deficiency, unspecified E55.9 and Dietary counseling and surveillance Z71.3 [employer] [facility] [employer] [address] [place] [address] 10/13/2024 Galina Koehler Assessments Encounter Date Diagnosis [...] to start Humira after receiving instruction from controls design engineer. Monitor for any side effects or complications. [...] procedures, referring and communicating with other health career development coordinator/teacher, documenting clinical information in the electronic or other health record, independently interpreting results and communicating results to the patient/family/caregiv er and care coordinating patient plan. Patient alert and oriented x 4 and aware of discussion noted above and in agreeance to plan in management of uncontrolled type 2 dM, dyslipidemia, obesity, fatigue and concern for hypercortisolism. 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 Recent prednisone use noted.Differential diagnosis includes adrenal or pituitary tumor.Actions: Schedule dexamethasone suppression test, fasting lab, and 24-hour urine collection at [facility] in 4 weeks (post-prednisone washout). Initiate Korlym [...] dietary restrictions.Actions: Adjust diabetes medications as per Dublin's syndrome plan. Continue metformin 2000 mg daily [...] weakness in arms and legs, currently under controls design engineer care and taking hydroxychloroquine.Act ions: Continue hydroxychloroquine as prescribed by controls design engineer. Monitor for changes in symptoms. Spent 15 [...] procedures, referring and communicating with other health career development coordinator/teacher, documenting clinical information in the electronic or [...] Insured Coverage Start Date Coverage End Date [facility] Complete 1 [facility] [address] [place] [address] [id number] Carmen Ponce Self - patient is the insured Medical (General) History Medical History History ICD Code BLOOD PREASURE DIABETIC RHMETOID ARTHRITIS Surgical History Surgery Date(Month/Year) FATTY TUMOR REMOVED BROKEN LEFT FOOT Hospitalization History Reason Date(Month/Year) 2018
--- OUTSIDE RECORDS SUMMARY | 2025-06-08 08:54 | XMS_ITS | Patient Health Record ---
Author Organization [facility] Address [address] [facility] ROJAS Cornejo [id number] Care Team Providers Care Channel Specialist Name Role Phone Galina Koehler Unavailable [phone] Allergies Allergen (clinical drug ingredient) Drug/Non Drug Allergy documented on EMR Reaction Allergy Type Onset Date Status Penicillin Unknown Drug Allergy Active Reason For Referral No Information Medications Medication SIG (Take, Route, Frequency, Duration) Notes Start Date End Date Status Ibuprofen 800 MG Tablet 1 tablet with food or milk as needed Orally every 8 hrs Not-Taking Trulicity 0.75 MG/0.5ML Solution Pen-injector 1 injection Subcutaneous once a week Active Methocarbamol 500 MG Tablet 1.5 tablets Orally every 4 hrs Not-Taking Ondansetron 4 MG Tablet Disintegrating 1 tablet on the tongue and allow to dissolve Orally Once a day; Duration: 30 days 5 Not-Taking Hydroxychloroquine Sulfate 200 MG Tablet as directed Orally Not-Taking Lantus SoloStar 100 UNIT/ML Solution Pen-injector take 20 units AM and 20 units PM Subcutaneous once a day; Duration: 90 days dispense 3 boxes of 5 pens for a 90 day supply 5 Active NovoLOG *Pick strength-form from [employer] for eRX* Unknown Dexcom G7 Sensor - Miscellaneous CHANGE EVERY 10 DAYS; Duration: 30 Active metFORMIN HCl ER 500 MG Tablet Extended Release 24 Hour 1 tablet with evening meal Orally Once a day Unknown Insulin Lispro (1 Unit Dial) 100 UNIT/ML Solution Pen-injector ADMINISTER 6 TO 16 UNITS UNDER THE SKIN THREE TIMES DAILY WITH MEALS; Duration: 27 Active Losartan Potassium 50 MG Tablet 1 tablet Orally Once a day taking 50 mg daily Unknown Atorvastatin Calcium 40 MG Tablet TAKE 1 TABLET BY MOUTH DAILY; Duration: 90 Active Basaglar KwikPen *Pick strength-form from [employer] for eRX* Unknown Diclofenac *Reorder from [employer] for eRx and Interaction Alerts* Active Trulicity 1.5 MG/0.5ML Solution Auto-injector as directed Subcutaneous weekly; Duration: 90 days Active hydroCHLOROthiazide 25 MG Tablet 1 tablet in the morning Orally Once a day taking 25 mg daily Active dexAMETHasone 1 MG Tablet 1 tablet Orally at 10 pm night before 8 am cortisol; Duration: 1 days Not-Taking Social History Social History Additional Details Category Social Info Options Details Migrated Social History Migrated Social History (Alcohol:):yes 4 times weekly (Recreational drug use:):no (Smoking:):no Problems Problem Type SNOMED Code ICD Code Onset Dates Problem Status W/U Status Risk Notes Problem Hyperglycemia due to type 2 diabetes mellitus (820035111341089) Type 2 diabetes mellitus with hyperglycemia (E11.65) Active confirmed Problem Disorder of adrenal gland (45774005) Disorder of adrenal gland, unspecified (E27.9) Active confirmed Problem Vitamin D deficiency (08832928) Vitamin D deficiency, unspecified (E55.9) Active confirmed Problem Obesity (374236056) Obesity, unspecified (E66.9) Active confirmed Problem Long-term current use of insulin (549034489) 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 Koehler [address] [place] [address] 10/30/2024 Galina Koehler AMROJAS Koehler [address] [place] [address] 09/29/2024 Galina Koehler Type 2 diabetes katarina itus with hyperglycemia E11.65 ; Obesity, unspecified E66.9 ; Hyperlipidemia, unspecified E78.5 ; Other fatigue R53.83 ; Vitamin D deficiency, unspecified E55.9 and Dietary counseling and surveillance Z71.[address] Koehler [address] [place] [phone] 03/05/2025 Galina Koehler Type 2 diabetes katarina itus with hyperglycemia E11.65 ; Obesity, unspecified E66.9 ; Dyslipidemia E78.5 ; Hyperlipidemia, unspecified E78.5 ; lawn sprinkler servicer (current) use of insulin Z79.4 and Dietary counseling and surveillance Z71.[address] Koehler [address] [place], [place] [phone] 05/21/2025 Galina Koehler Type 2 diabetes katarina itus with hyperglycemia E11.65 ; residential (current) use of insulin Z79.4 ; Obesity, unspecified E66.9 ; Dyslipidemia E78.5 ; Hypercortisolism E24.9 and Dietary counseling and surveillance Z71.[address] Koehler [address] [place] [phone] 10/13/2024 Galina LEGGETT [facility] [address] [place] [phone] 12/07/2024 Galina Koehler Obesity, unspecified E66.[address] Koehler [address] [place] [phone] 03/17/2025 Galina Koehler [facility] [address] [place], [place] [phone] 03/25/2025 Galina Koehler Disorder of adrenal gland, unspecified E27.9 [facility] [address] [place] [phone] 03/31/2025 Galina Koehler [address] [place] [phone] 04/12/2025 Galina Koehler [address] [place] [phone] 04/14/2025 Galina Koehler [address] [place] [phone] 04/14/2025 Galina LEGGETT [facility] [address] [place] [phone] 04/16/2025 Galina Koehler [facility] [address] [place] [phone] 04/26/2025 Galina Koehler [facility] [address] [place] [phone] 05/04/2025 Galina Koehler [address] [place] [phone] 05/14/2025 Galina Koehler [address] [place] [phone] 05/18/2025 Galina Koehler [address] [place] [phone] 05/26/2025 Galina Koehler Assessments Encounter Date Diagnosis (ICD [...] of adrenal gland, unspecified (ICD-10 - E27.9) 05/21/2025 Type 2 diabetes mellitus with hyperglycemia (ICD-10 - E11.65) 05/21/2025 lawn sprinkler servicer (current) use of insulin (ICD-10 - Z79.4) CGM reviewed and discussed with patient at visit today. Placed on right upper extremity. A1C at 11.2% with average 3% in range, 80% over range, no hypoglycemia, lowest glucose of 143 mg/dL- will expect to see more sugars under 200 mg /dL since start of korlym. Patient provided education to continue with testing regularly and changing sensor every 10 days. Will see patient in 6 weeks to review further CGM control/review . She will be using sensor indefinitely with goal to wean patient off insulin once korlym has met its maximal effect for cortisol control. 05/21/2025 Obesity, unspecified (ICD-10 - E66.9) 09/29/2024 Hyperlipidemia, unspecified (ICD9-CM - E78.5) 03/05/2025 Dyslipidemia (ICD-10 - E78.5) 03/05/2025 Hyperlipidemia, unspecified (ICD9-CM - E78.5) 09/29/2024 Other fatigue (ICD-10 - R53.83) 05/21/2025 Dyslipidemia (ICD-10 - E78.5) 05/21/2025 Hypercortisolism (ICD-10 - E24.9) 09/29/2024 Vitamin D deficiency, unspecified (ICD-10 - E55.9) 03/05/2025 lawn sprinkler servicer (current) use of insulin (ICD-10 - Z79.4) 05/21/2025 Dietary counseling and surveillance (ICD-10 - Z71.3) Spent 15 minutes preventative counseling patient on dietary recommendations and changes in setting of hyperglycemia- need to restrict refined sugars and processed foods and incorporate up to 150 minutes of moderate level activity weekly. 09/29/2024 Dietary counseling and surveillance (ICD-10 - [...] to start Humira after receiving instruction from robotics systems engineer. Monitor for any side effects or [...] examination and/or evaluation, counseling and educating the patient/family/caregi clair, ordering medications, tests, or procedures, referring and communicating with other health companion caregiver, documenting clinical information in the electronic or other health record, independently interpreting results and communicating results to the patient/family/caregi clair and care coordinating patient plan. Patient alert [...] after initiating Korlym (mifepristone) treatment 2. 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 Patient alert and oriented x 4 and aware of discussion noted above and in agreeance to plan in management of uncontrolled type 2 DM/obesity, likely secondary from hypercortisolism, dyslipidemia, insulin therapy use of CGM. 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 She is experiencing cortisol withdrawal symptoms, primarily headaches, which she manages with Tylenol. The patient is also on spironolactone 100 mg twice daily. The full effects of Korlym are expected to take up to 6 months. Current regimen includes daily Korlym, with plans to alternate doses in the future and potentially increase to twice daily dosing.Plan:- Continue Korlym daily at 300 mg daily-check potassium today as she has some minimal LE swelling but also test thyroid function- Continue spironolactone 100 mg twice daily- Maintain current regimen for 1 month before considering dose alternation- Monitor for cortisol withdrawal symptoms- Check potassium and thyroid levels Diabetes MellitusAssessment: Patient's blood glucose levels are fluctuating significantly with only 3% time in range over the past 14 days, as measured by Dexcom continuous glucose monitor. Recent A1c was 8.7%. Current insulin regimen includes Lantus 20 units BID and Humalog 12 units plus correction with meals. Patient is also on Trulicity 0.75 mg, which has been ineffective. A recent blood glucose reading of 143 mg/dL indicates some improvement. Anticipate better glycemic control within 3 months as Korlym therapy takes effect.Plan:- Increase Lantus to 25 units BID- Continue Humalog 12 units plus correction with meals- Increase Trulicity dose (specific dose not mentioned)- Adjust insulin doses as blood glucose trends improve: - Reduce by 3-4 units every 2 days when consistently below 200 mg/dL- Target blood glucose range: 90-180 mg/dL, average 120-130 mg/dL- Continue Dexcom CGM monitoring- Repeat A1c in 3 months Chronic PainAssessment: Patient reports ongoing pain issues, possibly related to peripheral arterial neuropathy. Pain management has increased pregabalin from 150 mg to 225 mg and plans to start nortriptyline. Consideration for nerve blocks and infusions for pain management has been discussed. Steroid therapy is contraindicated due to concurrent Korlym treatment.Plan:- Continue pregabalin 225 mg (frequency not specified)- Start nortriptyline as prescribed by pain management (dose not specified)- Proceed with planned nerve blocks and infusions for pain management- Check B12 levels- Consider B12 injections if levels are low- Follow up with pain management team EdemaAssessment: Patient reports swelling in hands and feet, which may be related to medication side effects or underlying medical conditions.Plan:- Monitor edema- Assess potassium levels (as part of previously mentioned lab work) Ovarian CystAssessment: Recent CT scan revealed an ovarian cyst. Clinical significance is unclear at this time.Plan:- Follow up with account general manager in May- Proceed with scheduled ultrasound in May Spent 25 minutes preparing to see the patient (ex review of tests/chart), obtaining and / or reviewing separately obtained history, performing a medically appropriate examination and/or evaluation, counseling and educating the patient/family/caregi clair, ordering medications, tests, or procedures, referring and communicating with other health companion caregiver, documenting clinical information in the electronic or other health record, independently interpreting results and communicating results to the patient/family/caregi clair and care coordinating patient plan. Patient alert and oriented x 4 and aware of discussion noted above and in agreeance to plan in management of type 2 DM with ham trimmer use of insulin and CGM, obesity, hypercortisolism, dyslipidemia. Plan Of Treatment Pending Test Test Name Order Date *CT ABDOMEN W/O CONTRAST 10710 5 Next Appt Details Provider Name:Galina Koehler, 09:40:00 AM, [address] [place] [address], [phone], Insurance Providers Payer Name Payer Address Payer Phone Subscriber Number Group Number Insured Name Patient Relationship to Insured Coverage Start Date Coverage End Date [employer] [address] [id number] Carmen Ponce Self - patient is the insured Medical (General) History Medical History History ICD Code BLOOD PREASURE DIABETIC RHMETOID ARTHRITIS Surgical History Surgery Date(Month/Year) BROKEN LEFT FOOT FATTY TUMOR REMOVED Hospitalization History Reason Date(Month/Year) 2018
--- OUTSIDE RECORDS SUMMARY | 2025-06-08 08:54 | XMS_ITS | Clinical Summary ---
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 current use of insulin (HCC) EGFR STAT 12/15/2022 6:24 PM CDT from Last 3 Months or Most Recently Relevant to Health Maintenance Results * POCT hemoglobin A1c (01/30/2024 10:05 AM CDT) Hemoglobin A1C, POC 8.3 % Blood 01/30/2024 10:0 5 AM CDT us Analia TUCKER POINT OF CARE TEST ORDE RABLES Final Result * DIABETES EYE EXAM (12/19/2023 7:59 AM CDT) Mark Wisdom MD HEALTH MAINTENANCE Final Result * (ABNORMAL) Albumin Creatinine Ratio, Urine (11/26/2023 10:07 AM INSIDE PLANT SUPERVISOR) Albumin Ur 92.3 mg/L [facility] Comment: Interpretive Data No reference range established. Current interpretive data was last revised 2019. Creatinine Ur 135.3 mg/dL [facility]GRC[facility] Comment: Interpretive Data No reference range established. Current interpretive data was last revised 2019. Albumin Creatinine Ratio, Ur 68(H) 1 - 29 mg/g [facility] Urine 11/26/2023 10:0 7 AM INSIDE PLANT SUPERVISOR 11/26/2023 12:56 PM INSIDE PLANT SUPERVISOR Christopher Larkin MD LAB URINE ORDERABLE S Final Result [facility] [id number] [address] Department [place] [address] * (ABNORMAL) Lipid panel (11/26/2023 10:07 AM INSIDE PLANT SUPERVISOR) Cholesterol 181 30 - 199 mg/dL [facility] Comment: Interpretive Data Ages < or = 19 years Acceptable: <170 mg/dL Borderline high: 170-199 mg/dL High: >or= 200 mg/dL Ages > or = 20 years Desirable: <200 mg/dL Borderline high: 200-239 mg/dL High: >or= 240 mg/dL Literature References: 1. Expert Panel on Integrated Guidelines for Cardiovascular Health and Risk Reduction in Children and Adolescents. Pediatrics 2011;128:S213 2. NCEP Expert Panel. Circulation 2004;110:227 Current Interpretive Data was last revised on 2018. Triglycerides 224(H) <=149 mg/dL [facility] Comment: Interpretive Data Ages < or = 9 years Acceptable: <75 mg/dL Borderline high: 75-99 mg/dL High: >or= 100 mg/dL Ages 10 to 20 years Acceptable: <90 mg/dL Borderline high: 90-129 mg/dL High: >or= 130 mg/dL Ages > or = 20 years Desirable: <150 mg/dL Borderline high: 150-199 mg/dL High: 200-499 mg/dL Very high: >or= 499 mg/dL Literature References: 1. Expert Panel on Integrated Guidelines for Cardiovascular Health and Risk Reduction in Children and Adolescents. Pediatrics 2011;128:S213 2. NCEP Expert Panel. Circulation 2004;110:227 Current Interpretive Data was last revised on 2018. HDL 42 >=40 mg/dL [facility] Comment: Interpretive Data Ages < or = 19 years Acceptable: >45 mg/dL Borderline low: 40-45 mg/dL Low: <40 mg/dL Ages > or = 20 years Desirable: >or= 60 mg/dL Low: <40 mg/dL Literature References: 1. Expert Panel on Integrated Guidelines for Cardiovascular Health and Risk Reduction in Children and Adolescents. Pediatrics 2011;128:S213 2. NCEP Expert Panel. Circulation 2004;110:227 Current Interpretive Data was last revised on 2018. LDL, calculated 94 <=129 mg/dL [facility] Comment: Interpretive Data Ages < or = 19 years Acceptable: <110 mg/dL Borderline high: 110-129 mg/dL High: >or= 130 mg/dL Ages > or = 20 years Optimal: <100 mg/dL Near optimal: 100-129 mg/dL Borderline high: 130-159 mg/dL High: >160 mg/dL Literature References: 1. Expert Panel on Integrated Guidelines for Cardiovascular Health and Risk Reduction in Children and Adolescents. Pediatrics 2011;128:S213 2. NCEP Expert Panel. Circulation 2004;110:227 Current Interpretive Data was last revised on 2018. Non-HDL Cholesterol 139 mg/dL [facility] Comment: Interpretive Data Ages < or = 19 years Acceptable: <120 mg/dL Borderline high: 120-144 mg/dL High: >145 mg/dL Ages > or = 20 years When triglycerides are >200 mg/dL, Non-HDL cholesterol is a secondary target of therapy with treatment goals that are 30 mg/dL greater than the LDL cholesterol target. Literature References: 1. Expert Panel on Integrated Guidelines for Cardiovascular Health and Risk Reduction in Children and Adolescents. Pediatrics 2011;128:S213 2. NCEP Expert Panel. Circulation 2004;110:227 Current Interpretive Data was last revised on 2018. Chol/HDL ratio 4 [facility] Blood 11/26/2023 10:0 7 AM INSIDE PLANT SUPERVISOR 11/26/2023 12:56 PM INSIDE PLANT SUPERVISOR us Supraja Trae Larkin MD LAB BLOOD ORDERABLE S Final Result [facility] [id number] [address] Department [place] [address] * eGFR (12/15/2022 6:24 PM CDT) eGFR >90 90 - 130 mL/min/1. 73 m2 [facility] Comment: Interpretive Data Reference Interval Normal >/= 90 mL/min/1.73m2 Mildly decreased* 60 - 89 mL/min/1.73m2 Mildly to moderately decreased 45 - 59 mL/min/1.73m2 Moderately to severely decreased 30 - 44 mL/min/1.73m2 Severely decreased 15 - 29 mL/min/1.73m2 Kidney Failure < 15 mL/min/1.73m2 *Relative to young adult level Estimated glomerular filtration rate is determined by the 2020 CKD-EPI equation recommended by the National Kidney Foundation (A Unifying Approach to GFR Estimation: Recommendations of the NKF-ASK Task Force on Reassessing the Inclusion of Race in Diagnosing Kidney Disease, JASN 2020). The CKD-EPI equation should not be used for patients with unstable renal function and has not been validated in children and those over 70. Current interpretive data was last reviewed 2021. Blood 12/15/2022 6:24 PM CDT 12/15/2022 6:41 PM CDT Owen Murray MD LAB BLOOD ORD ERABLES Final Result [facility] Department [place] [address] from Last 3 Months or Most Recently Relevant to Health Maintenance Insurance [facility] Advance Directives For more information, please contact: [phone] * Full Code (Latest Code Status on File) Date Activated Date Inactivated Comments 12/12/2018 5:21 AM 12/15/2018 8:24 PM * Full Code Date Activated Date Inactivated Comments 12/09/2018 9:12 PM 12/12/2018 5:21 AM Full CPR in case of cardiopulmonary arrest Care Teams Plastic Bubble Packer Relationship Specialty Start Date End Date Sherri Bowers MD [address] [place] [address] PCP - General Family Medicine 01/30/24 Hamida Carey NP Nurse Practitioner Neurology 03/24/20
--- OUTSIDE RECORDS SUMMARY | 2025-06-08 08:54 | XMS_ITS | Clinical Summary ---
Author Organization [facility] [employer] Address [address] [facility] [place] [address] Care Team Providers Care Global Engineering Manager Name Role Phone Sherri Bowers MD Primary Care Provider [phone] Source Comments [facility] [employer],non-owned Affiliates and Associated Physician Practices is amultiple site organization consisting of ambulatory clinics and hospital sitesin [place], [place], [place] and [place]. This disclosure is being madepursuant to the Care Everywhere program and may not contain all information available regarding this patient. Last updated 18.[facility] [employer] Allergies Active Allergy Reactions Criticality Noted Date Comments Penicillins Urticaria 05/26/2014 Medications * Be aware that medications may not be up to date on this document. Alwaysverify current medications with the patient. albuterol HFA (PROVENTIL; VENTOLIN; PROAIR) 108 (90 Base) MCG/ACT inhaler albuterol sulfate HFA 90 mcg/actuation aerosol inhaler INHALE 2 PUFFS BY MOUTH EVERY 4 HOURS NEEDED Active vitamin D3 (CHOLECALCIFEROL) 125 MCG (5000 UT) capsule cholecalciferol (vitamin D3) 125 mcg (5,000 unit) capsule Active omeprazole (PriLOSEC) 40 MG capsule Take 1 (one) capsule by mouth once daily 30 capsule 11 12/04/19 23 Active losartan (Cozaar) 100 MG tablet Take 1 (one) tablet by mouth once daily 12/15/19 22 Active Vascepa 1 g capsule Take 2 (two) capsules by mouth 2 times daily 02/25/20 23 Active glimepiride (Amaryl) 2 MG tablet TAKE 2 TABLETS BY MOUTH TWICE DAILY BEFORE A MEAL 12/14/19 23 Active Ozempic, 1 MG/DOSE, 4 MG/3ML pen INJECT 1 MG EVERY WEEK BY SUBCUTANEOUS ROUTE AT DINNER FOR 90 DAYS. 10/30/19 24 Active pantoprazole EC (Protonix) 40 MG tablet pantoprazole 40 mg tablet,delayed release TAKE 1 TABLET BY MOUTH ONCE DAILY Active metFORMIN ER 24hr (Glucophage XR) 500 MG tablet Take 1 (one) tablet by mouth 2 times daily with morning and evening meal 04/25/20 23 Active Lancets (ONETOUCH DELICA PLUS 33G EXTRA FINE LANCET) USE TO TEST 3 TIMES DAILY BEFORE MEALS 08/13/20 23 Active ibuprofen (Motrin) 600 MG tablet TAKE 1 TABLET BY MOUTH EVERY 6 HOURS NEEDED WITH FOOD 10/29/19 24 Active BD Pen Needle Lisa 2nd Gen 32G X 4 MM MISC USE WITH INJECTIONS FOUR TIMES DAILY 01/31/20 24 Active insulin lispro (HumaLOG;ADMelog) 100 UNIT/ML pen ADMINISTER 6 TO 16 UNITS UNDER THE SKIN THREE TIMES DAILY WITH MEALS Active Basaglar KwikPen (Basaglar) pen ADMINISTER 20 UNITS UNDER THE SKIN DAILY 05/27/20 24 Active HYDROcodone-aceta minophen ([place]) 5-325 MG tablet TAKE 1 TABLET BY MOUTH EVERY 8 HOURS NEEDED FOR PAIN CONTROL Active Continuous Glucose Sensor (Dexcom G7 Sensor) MISC REPLACE EVERY 10 DAYS 08/14/20 24 Active celecoxib (CeleBREX) 200 MG capsule 03/12/20 24 Active hydroCHLOROthiazi de (Hydrodiuril) 25 MG tablet Take 1 (one) tablet by mouth once daily Active adalimumab (Humira) 40 MG/0.4ML injectionIndicati ons:Rheumatoid arthritis involving multiple sites with positive rheumatoid factor (HCC),Therapeutic drug monitoring,Rheuma toid arthritis involving multiple joints (HCC),Inflammator y polyarthritis (HCC),Psoriatic arthritis (HCC) Inject 0.4 mL subcutaneously every 14 days 2.4 mL 3 08/26/20 24 025 Active Adalimumab-adaz (Hyrimoz) 40 MG/0.4ML injectionIndicati ons:Rheumatoid arthritis involving multiple sites with positive rheumatoid factor (HCC),Therapeutic drug monitoring Inject 0.4 mL subcutaneously every 14 days 2.4 mL 3 09/02/20 025 Active Active Problems Problem Noted Date Diagnosed Date Nonalcoholic fatty liver disease 04/23/2020 Overview (12/06/2022): 04/22/20 Fibroscan CAP 400, LSM 9.2 kPa 12/03/22 Fibroscan CAP 353, LSM 5.8 kPa Supervision of high-risk of elderly mu ltigravida 05/26/2014 Overview (06/09/2014): Patient had abnormal quant, plans to get D&C with Dr Guillermo Saturday06/11/14 Chronic hypertension in 05/26/2014 Overview (06/09/2014): Aldomet 500mg BID ASA 81mg daily No 24 hour urine sent T2DM (type 2 diabetes mellitus) 05/26/2014 Overview (06/09/2014): Metformin 200mg BID Hg A1c 9.6 GBS (group B streptococcus) UTI complicating pre gnancy 05/26/2014 HPV in female 05/26/2014 History of surgery 05/26/2014 Overview (05/26/2014): Appendectomy, hernia repair, ? Myomectomy vs fibroma removal Resolved Problems Problem Noted Date Diagnosed Date Resolved Date Hepatitis C 05/26/2014 07/26/2020 Overview (05/29/2014): PCR quant <1.2 log, undetectable on 05/26 Encounters Date Type Department Care Team Description 03/29/2025 Refill [facility] - Rheumatology [address] [facility] [place] [address] Pranav Lucio MD Refill Request 03/12/2025 2:10 PM CDT - 03/12/2025 11:59 PM CDT Hospital Encounter [facility] [address] [facility] [place] [address] Sandra Chi PA-C Discharge Disposition: Home or Self Care 03/12/2025 2:00 PM CDT Office Visit [facility] - Orthopedics [address] [facility] [place] [address] Sandra Chi PA-C Chronic neck pain (Primary Dx); Chronic midline thoracic back pain; Chronic midline low back pain without sciatica; Cervical paraspinal muscle spasm; Lumbar paraspinal muscle spasm; Chronic periscapular pain on both sides; Disorder of left common peroneal nerve 03/12/2025 Travel 03/11/2025 Orders Only [facility] [facility] [facility] [place] [address] Sandra Chi PA-C Low back pain, unspecified back pain laterality, unspecified chronicity, unspecified whether sciatica present ; Back pain, unspecified back location, unspecified back pain laterality, unspecified chronicity from Last 3 Months Immunizations Immunization Administration Dates Next Due FLU VACCINE QUAD IIV4 SPLIT 0.25 ML IM 8,08/03/2014 FLU VACCINE TRI IIV3 SPLIT PF IM (FLUVIRIN) 09/2012 INFLUENZA VACCINE, CELL CULT URE, QUADR. (FLUCELVAX QUADRIVALENT; 6MO+), 0.5 ML (CCIIV4) 07/15/2018 Family History Medical History Relation Name Comments Diabetes Brother Diabetes Father Hypertension Father Cancer Maternal Grandfather lung Hypertension Maternal Grandfather Cancer Paternal Grandmother unclear type Diabetes Paternal Grandmother Relation Name Status Comments Brother Father Maternal Grandfather Paternal Grandmother Social History Tobacco Use Types Packs/Day Years Used Date Smoking Tobacco: Never Smokeless Tobacco: Never Tobacco Cessation:Counseling Given: Not Answered Alcohol Use Standard Drinks/Week Comments Yes 4 (1 standard drink = 0.6 oz pur e alcohol) PHQ-2 Answer Date Recorded Patient Health Questionnaire-2 Score 3 08/26/2024 Comments No Sex and Gender Information Value Date Recorded Sex Assigned at Not on file Legal Sex Female 2:57 PM ELEVATORS INSPECTOR Gender Identity Not on file Sexual Orientation Not on file Last Filed Vital Signs Vital Sign Reading Time Taken Comments Blood Pressure 144/90 08/26/2024 10:19 AM ELEVATORS INSPECTOR Pulse 81 08/26/2024 10:19 AM ELEVATORS INSPECTOR Temperature 36.7 C (98.1 F) 08/26/2024 10:19 AM ELEVATORS INSPECTOR Respiratory Rate 14 07/26/2020 3:38 PM CDT Oxygen Saturation 97% 08/26/2024 10:19 AM ELEVATORS INSPECTOR Inhaled Oxygen Concentration - - Weight 95.3 kg (210 lb) 03/12/2025 2:26 PM CDT Height 165.1 cm (5' 5) 08/26/2024 10:19 AM ELEVATORS INSPECTOR Body Mass Index 34.95 08/26/2024 10:19 AM ELEVATORS INSPECTOR Plan of Treatment Health Maintenance Due Date Last Done Comments COLOGUARD (AGES 45-75) - COLON CA SCREENING 1977 COLON MONITORING 1977 COLONOSCOPY - COLON CA SCREENING 1977 CT COLONOGRAPHY - COLON CA SCREENING 1977 Colorectal Cancer Screening 1977 FIT - COLON CA SCREENING 1977 FLEX SIG - COLON CA SCREENING 1977 HIV SCREENING 1992 DTAP/TDAP/TD VACCINES (1 - Tdap) 1996 HEPATITIS B VACCINE (1 of 3 - 19+ 3-dose series) 1996 PNEUMOCOCCAL VACCINE (1 of 2 - PCV) 1996 PAP SMEAR 1998 DIABETES-STATIN 2017 DIABETES RETINOPATHY SCREENING 01/27/2020 DIABETES-FOOT EXAM WITH MONOFILAMENT 01/27/2020 DEPRESSION SCREENING 09/30/2024 08/26/2024 DIABETES - URINE PROTEIN SCREENING 09/30/2024 DIABETES-SERUM CREATININE 11/21/20242023, 12/15/2022, 12/15/2022, Additional history exists DIABETES-HGB A1C 04/06/2025 01/05/2025, 10/2023, 11/21/2023, Additional history exists COVID-19 VACCINE ( - season) 2025 INFLUENZA VACCINE (#1) 2025 , 08/15/2021, 08/20/2018, Additional history exists MAMMOGRAM 05/26/2026 05/26/2024, 05/26/2024 ZOSTER VACCINE (1 of 2) 2027 HEPATITIS C SCREENING Completed 11/21/2023 , 07/26/2020, 05/26/2014, Additional history exists HIB VACCINE Aged Out No longer eligi ble based on patient's age to complete this topic HPV VACCINE Aged Out No longer eligi ble based on patient's age to complete this topic MENINGOCOCCAL (Group B) VACCINE SHARED DECISION-MAKING Aged Out No longer eligible based on patient's age to complete this topic MENINGOCOCCAL GROUPS A/C/Y/W VACCINE Aged Out No longer eligible based on patient's age to complete this topic Goals Goal Patient Goal Type Associated Problems Recent Progress Patient-Stated? Author Medication Management General On track( 022 8:13 AM ELEVATORS INSPECTOR) Olivier Higgins, RN Note: Expected end date: Interventions: Take all medications as prescribed Let your doctor know right away about any changes in your medications Make sure to request a refill of your medication at least one week prior to your last dose Procedures Procedure Name Priority Date/Time Associated Diagnosis Comments XR SPINE ENTIRE 2 OR 3VW Routine 03/12/2025 2:19 PM CDT Back pain, unspecified back location, unspecified back pain laterality, unspecified chronicity COMPREHENSIVE METABOLIC PANEL Routine 11/21/2023 2:27 PM ELEVATORS INSPECTOR Inflammatory polyarthritis Therapeutic drug monitoring Diabetes mellitus type 2 in obese Rheumatoid arthritis involving multiple joints Need for hepatitis B screening test Need for hepatitis C screening test Screening for tuberculosis HEPATITIS C ANTIBODY Routine 11/21/2023 2:27 PM ELEVATORS INSPECTOR Inflammatory polyarthritis Therapeutic drug monitoring Diabetes mellitus type 2 in obese Rheumatoid arthritis involving multiple joints Need for hepatitis B screening test Need for hepatitis C screening test Screening for tuberculosis HEMOGLOBIN A1C Routine 11/21/2023 2:27 PM ELEVATORS INSPECTOR Inflammatory polyarthritis Therapeutic drug monitoring Diabetes mellitus type 2 in obese Rheumatoid arthritis involving multiple joints Need for hepatitis B screening test Need for hepatitis C screening test Screening for tuberculosis from Last 3 Months or Most Recently Relevant to Health Maintenance Results * XR Spine Entire 2 or 3Vw (03/12/2025 2:19 PM CDT) Anatomical Region Laterality Modality Spine Computed Radiogr aphy 03/12/2025 2:29 PM CDT Impressions 03/12/2025 2:31 PM CDT IMPRESSION: No significant scoliosis. > Interpreting Provider: Rafael Esquivel MD on 03/12/2025 2:31 PM Narrative 03/12/2025 2:31 PM CDT PROCEDURE: XR SPINE ENTIRE 2 OR 3VW DATE/TIME OF EXAM: 03/12/2025 2:19 PM CLINICAL INFORMATION: None relevant/not provided if blank. Indication: M54.9: Back pain, unspecified back location, unspecified back pain laterality, unspecified chronicity Additional History: COMPARISON: None. TECHNIQUE: FINDINGS: There is minimal spinal curvature on the PA view of less than 5 degrees. The thoracic kyphosis and lumbar lordosis are maintained. There is no pelvic tilt. There is no sagittal or coronal imbalance. There are very mild spinal degenerative changes. Procedure Note Rafael Esquivel MD - 03/12/2025 PROCEDURE: XR SPINE ENTIRE 2 OR 3VW DATE/TIME OF EXAM: 03/12/2025 2:19 PM CLINICAL INFORMATION: None relevant/not provided if blank. Indication: M54.9: Back pain, unspecified back location, unspecifiedback pain laterality, unspecified chronicity Additional History: COMPARISON: None. TECHNIQUE: FINDINGS: There is minimal spinal curvature on the PA view of less than 5 degrees. The thoracic kyphosis and lumbar lordosis are maintained. There is no pelvic tilt. There is no sagittal or coronal imbalance. There are verymild spinal degenerative changes. IMPRESSION: No significant scoliosis. > Interpreting Provider: Rafael Esquivel MD on 03/12/2025 2:31 PM Sandra Chi PA-C DIAGNOSTIC IMAGING ORDERABL ES Final Result * (ABNORMAL) HEMOGLOBIN A1C (11/21/2023 2:27 PM ELEVATORS INSPECTOR) Hemoglobin A1c 10.4(H) <=5.6 % 11/22/2023 9:21 AM [facility] Estimated Average Glucose 252 mg/dL 11/22/2023 9:21 AM [facility] Comment: HbA1c Interpretation: Normal : < 5.7% Pre-diabetes: 5.7-6.4% Diabetes: Equal to or greater than 6.5% Test results diagnostic of diabetes should be repeated for confirmation. Treatment target values recommended by ADA and other clinical organizations should be used to evaluate metabolic control in patients. Reference: [place] Diabetes Association, Standards of Care in Diabetes -2020 In patients 70 years and older consider HbA1c target range of 7.0-7.5% (Reference: Ted Meek et al. CHACORTADA. 2012) The Sebia assay for the measurement of HbA1c is a National Glycohemoglobin Standardization Program (NGSP) certified method. Blood BLOOD SPECIMEN / Unknown Lab Venipuncture / Unknown 11/21/2023 2:27 PM ELEVATORS INSPECTOR 11/21/2023 2:46 PM ELEVATORS INSPECTOR Dwayne Vargas MD LAB - CHEMISTRY ORDERABLES Final Result [address] [address], [facility] [phone] * (ABNORMAL) COMPREHENSIVE METABOLIC PANEL (11/21/2023 2:27 PM ELEVATORS INSPECTOR) BUN 19 7 - 26 mg/dL 11/21/2023 3:21 PM [facility] Creatinine 0.59 0.56 - 0.96 mg/dL 11/21/2023 3:21 PM [facility] Sodium 135(L) 136 - 145 mmol/L 11/21/2023 3:21 PM [facility] Potassium 3.5 3.5 - 4.5 mmol/L 11/21/2023 3:21 PM [facility] Chloride 99 98 - 107 mmol/L 11/21/2023 3:21 PM [facility] CO2 24 22 - 29 mmol/L 11/21/2023 3:21 PM [facility] Glucose 219(H) 70 - 115 mg/dL 11/21/2023 3:21 PM [facility] Calcium 9.7 8.4 - 10.2 mg/dL 11/21/2023 3:21 PM [facility] Protein Total 7.6 6.0 - 8.3 g/dL 11/21/2023 3:21 PM [facility] Albumin 4.0 3.4 - 5.0 g/dL 11/21/2023 3:21 PM ELEVATORS INSPECTOR [facility] Bilirubin Total 0.5 0.2 - 1.2 mg/dL 11/21/2023 3:21 PM [facility] Alkaline Phosphatase 89 40 - 150 U/L 11/21/2023 3:21 PM [facility] ALT 14 5 - 55 U/L 11/21/2023 3:21 PM [facility] AST 12 5 - 34 U/L 11/21/2023 3:21 PM [facility] Anion Gap 12 6 - 16 11/21/2023 3:21 PM [facility] BUN/Creatinine Ratio 32(H) 7 - 23 11/21/2023 3:21 PM [facility] Osmolality Calculated 289 275 - 295 mOsm/kg 11/21/2023 3:21 PM [facility] Albumin/Globulin Ratio 1.1 1.1 - 2.3 11/21/2023 3:21 PM [facility] eGFR by CKD-EPI >90 >=90 mL/min/1.7 3 m2 11/21/2023 3:21 PM [facility] Blood BLOOD SPECIMEN / Unknown Lab Venipuncture / Unknown 11/21/2023 2:27 PM ELEVATORS INSPECTOR 11/21/2023 2:46 PM ELEVATORS INSPECTOR Dwayne Vargas MD LAB - CHEMISTRY ORDERABLES Final Result [facility] [address] [place] [address], [facility] [phone] * HEPATITIS C ANTIBODY (11/21/2023 2:27 PM ELEVATORS INSPECTOR) Hepatitis C Antibody Non-react олег Non-reac tive 11/21/2023 3:30 PM [facility] Comment:Hepatitis C Antibody screen indicates no serologic evidence of past or current infection with Hepatitis C Virus. Patients with unexplained liver disease who are immunocompromised or suspected of having acute Hepatitis C infection may benefit from Nucleic Acid Test (NEISHA) for Hepatitis C Viral RNA to confirm Hepatitis C status. Blood BLOOD SPECIMEN / Unknown Lab Venipuncture / Unknown 11/21/2023 2:27 PM ELEVATORS INSPECTOR 11/21/2023 2:38 PM ELEVATORS INSPECTOR Dwayne Vargas MD LAB - CHEMISTRY ORDERABLES Final Result [facility] [address] [place] [address], [facility] [phone] from Last 3 Months or Most Recently Relevant to Health Maintenance Insurance [facility] MEDICAID - [place] Advance Directives * Full Code (Latest Code Status on File) Date Activated Date Inactivated Comments 05/26/2014 4:23 PM 05/29/2014 4:06 PM Care Teams Global Engineering Manager Relationship Specialty Start Date End Date Sherri Bowers MD [address] [place] [address], [address] [facility] [address] [place] [address] PCP - General Family Medicine 05/06/25
[2025-06-08 09:23] LABS: Beta HCG Quantitative < 2.39 mIU/ML
== END 2025-06-08 08:25 | disposition home or self-care (01) ==
LOC: ANHLAB 08:25
PROVIDERS: Visit Provider Student in an Organized Health Care Education/Training Program
DX: N92.6 Irregular menstruation, unspecified (principal)
CPT/HCPCS: 36415; 84702

== ENCOUNTER 2025-07-08 11:15 | Outpatient (RCR) | payer OTHER, SELFPAY ==
--- NOTE | 2025-05-28 16:58 | OPREHPOC ---
Outpatient Therapy Plan of Care This is a Multidisciplinary Plan of Care that may contain components documented by all disciplines (PT, OT, and ST.) PT Problem 1 PT Problem #1 Knowledge Deficit PT Goal 1 Goal / Goal Update Pt. will demo good understanding of diagnosis and prognosis, HEPs. Target Visit 6 PT Problem 2 PT Problem #2 Pain PT Goal 1 Goal / Goal Update Pt will report pain levels of 2-3/10 at worst after walking or standing, getting in and out of the car and other ADLs. Target Visit 8 PT Problem 3 PT Problem #3 Impaired Gait PT Goal 1 Goal / Goal Update 1. Pt will demo single leg standing of 10 seconds each LE without increased postural sway and pain. 2. Pt will improve ambulation distance of 400ft or more within 2 min without increased pain. Target Visit 8
--- NOTE | 2025-05-28 16:58 | PTOPEVAL1 ---
Assessment and note entered by Alley Gray, PT Evaluation Information Assessment Status Evaluation Diagnosis neck pain, thoracic back pain, low back pain ICD-10 Condition Codes (PT) Pain in Thoracic Spine M54.6,Pain in low back M54. 50,Radiculopathy, thoracolumbar region M54.15, Radiculopathy, lumbar region M54.16,Radiculopathy, sacral and sacrococcygeal region M54.18,Pain in left hip M25.552,Pain in left knee M25.562, Difficulty Walking R26.2,Abnormalities of gait and mobility R26.9,Weakness R53.1 Onset January 2024 Subjective Information Reports having multiple pain areas but what bothers her the most is the sharp pain to ankle and foot, shooting pain. Pain starts from L hip area and buttocks to L leg and foot. Lower back pain L > R, also pinching pain to both upper shoulders. Back pain is chronic, foot pain started January 2024 when she woke up from sleeping on the couch. Leg pain comes and goes, has gotten worse recently . Neck and Back pain also comes and goes. Pain worst at night, takes medication for relief. Tried icing and heat, feels that it did not work. constant throbbing and ache pain to the L foot upon sitting down from walking/standing for prolonged period of time. Difficulty walking and going up and down stairs, getting in and out of the car. Likes dancing but stopped since all this started, feels like L LE gives out on her. Reported Pain Level Pain Score 8: Self Report Assessment PT Clinical Summary Pt presents to therapy with c/o shooting pain to lowback, L hips radiating down to L LE and L foot impacting activity tolerance louis standing and walking for long periods of time. She will benefit from skilled PT for postural training, lumbar stabilization, flexibility exercises, core strengthening and modalities for pain management in order to return to performing IADLs and recreational activities/hobbies like dancing without increased pain and discomfort. Plan of Care Interventions Check Out for Orthotic/Prosthetic,Electrical Stimulation,Gait Training,Hot Pack/Cold Pack, Manual Therapy,Neuro Re-education,Patient/ Caregiver Education,Therapeutic Activities, Therapeutic Exercise,Ultrasound,Other Other Interventions IASTM, Taping, Dry Needling PT Services Indicated Yes Treatment Frequency and 2x/wk x 8 visits Duration These treatments will address the objective and functional deficits as defined above. The patient will be advanced safely and appropriately in order for the patient to progress towards his/her prior level of function. Additional exercises will be introduced and as well as a comprehensive home exercise program upon discharge, if needed, ?to ensure carryover of functional gains achieved in the clinic. This treatment plan has been reviewed and agreement upon by the patient.
--- NOTE | 2025-06-28 09:27 | PCPTNOTE ---
No call no show, reason unknown. AKCindy
--- NOTE | 2025-07-01 10:53 | PCPTNOTE ---
Cancelled d/t transportation issue per front office. AKS
--- NOTE | 2025-07-06 15:33 | PCPTNOTE ---
No call no show, reason unknown. AKCindy
--- NOTE | 2025-07-07 14:35 | PCPTNOTE ---
Pt canceled stated she cant make it.
--- NOTE | 2025-07-14 18:11 | OPREHPOC ---
Outpatient Therapy Plan of Care This is a Multidisciplinary Plan of Care that may contain components documented by all disciplines (PT, OT, and ST.) PT Problem 1 PT Problem #1 Knowledge Deficit PT Goal 1 Goal / Goal Update Pt. will demo good understanding of diagnosis and prognosis, HEPs. Target Visit 6 Progress Met PT Problem 2 PT Problem #2 Pain PT Goal 1 Goal / Goal Update Pt will report pain levels of 2-3/10 at worst after walking or standing, getting in and out of the car and other ADLs. --cont this goal Target Visit 8 PT Problem 3 PT Problem #3 Impaired Gait PT Goal 1 Goal / Goal Update 1. Pt will demo single leg standing of 10 seconds each LE without increased postural sway and pain. 2. Pt will improve ambulation distance of 400ft or more within 2 min without increased pain. update: 07/08/2025 cont with goals 1-2 Target Visit 8 Progress Partially Met
--- NOTE | 2025-07-14 18:12 | PTOPPROG ---
Assessment and note entered by Alley Gray, PT Re-Evaluation Information Assessment Status Progress Diagnosis neck pain, thoracic back pain, low back pain ICD-10 Condition Codes (PT) Pain in Thoracic Spine M54.6,Pain in low back M54. 50,Radiculopathy, thoracolumbar region M54.15, Radiculopathy, lumbar region M54.16,Radiculopathy, sacral and sacrococcygeal region M54.18,Pain in left hip M25.552,Pain in left knee M25.562, Difficulty Walking R26.2,Abnormalities of gait and mobility R26.9,Weakness R53.1 Onset January 2024 Subjective Information Pt reports she is able to tolerate walking and standing more now than when she first started therapy. However, pain levels continue to be high and it continue to affect her movement daily. She is not getting much relief from manual therapies and the exercises seem to aggravate her more. Assessment PT Clinical Summary Pt received 8 treatment sessions of Physical Therapy, with minimal progress towards goals. Pt reports continue to experience high pain levels and limitation in motions impacting her ability to perform ADLs and community ambulation indep. She is also diabetic and presents with neuropathy. Manual therapies did not seem to reduce pain; patient re-assessed and discussion regarding other possible techniques to help alleviate the symptoms and improve condition. Pt would benefit from continued skilled PT focusing on aquatic therapy and dry needling techniques to allow patient to improve flexibility, strength and endurance without increased pain. Plan of Care Interventions Aquatic Therapy,Check Out for Orthotic/Prosthetic, Electrical Stimulation,Gait Training,Hot Pack/Cold Pack,Manual Therapy,Patient/Caregiver Education, Therapeutic Activities,Therapeutic Exercise, Ultrasound,Other Other Interventions Dry Needling PT Services Indicated Yes Treatment Frequency and 1x/wk x 8 visits for AQUATIC THERAPY Duration These treatments will address the objective and functional deficits as defined above. The patient will be advanced safely and appropriately in order for the patient to progress towards his/her prior level of function. Additional exercises will be introduced and as well as a comprehensive home exercise program upon discharge, if needed, ?to ensure carryover of functional gains achieved in the clinic. This treatment plan has been reviewed and agreement upon by the patient.
== END 2025-08-26 23:59 | disposition home or self-care (01) ==
LOC: ANHPT 11:15
DX: M54.6 Pain in thoracic spine (principal); M54.15 Radiculopathy, thoracolumbar region; M25.552 Pain in left hip; M25.562 Pain in left knee; M54.50 Low back pain, unspecified; M54.18 Radiculopathy, sacral and sacrococcygeal region; M54.16 Radiculopathy, lumbar region; R26.2 Difficulty in walking, not elsewhere classified; R26.9 Unspecified abnormalities of gait and mobility; R53.1 Weakness
CPT/HCPCS: 97014; 97110; 97140; 97161; 97530; 97750; G0283